=== PATIENT | female | born 1990 | race Caucasian/White ===

== ENCOUNTER 2021-02-26 07:45 | Emergency (ER) | payer MEDICAID, SELFPAY ==
--- NOTE | ~2021-02-26 | CT_ITS ---
EXAMINATION: CT ABDOMEN AND PELVIS WITHOUT CONTRAST CLINICAL INFORMATION: Right flank pain. COMPARISON: None TECHNIQUE: Multidetector volumetric imaging was performed from the superior aspect of the liver through the pubic symphysis. Sagittal and coronal reformatted images were obtained on the technologist's workstation. This CT examination was performed using dose optimization techniques as appropriate, variously including the following: *Automated exposure control *Adjustment of mA and/or kV according to patient size (this includes techniques or standardized protocols for targeted exams where dose is matched to indication/reason for exam; i.e. extremities or head) *Use of iterative reconstruction technique DLP: 819 mGy-cm FINDINGS: LUNG BASES: The lungs are well expanded and clear. Heart size is normal. LIVER, GALLBLADDER, AND BILIARY TREE: The liver is normal in size, shape, and attenuation. No focal hepatic lesion or biliary ductal dilatation is present. The gallbladder has been surgically removed. PANCREAS: Unremarkable. SPLEEN: Unremarkable. ADRENAL GLANDS: Unremarkable. KIDNEYS AND URETERS: The kidneys are normal in size, shape, and attenuation. There is a nonobstructive 3 mm radiopaque calculus in the lower pole calyx of the right kidney, 4 mm radiopaque calculus in the lower pole of the right kidney without caliectasis. There is mild right hydroureteronephrosis secondary to a 3 mm radiopaque calculus in the right distal ureter on axial image 76/2. BLADDER: Unremarkable. GASTROINTESTINAL TRACT: There is scattered stool and gas seen throughout the colon without any distention. The small bowel loops are normal caliber. The appendix is normal caliber. The stomach is nondistended. No free fluid or free air is seen. ABDOMINAL WALL: A small umbilical hernia containing fat is noted. LYMPH NODES: No abnormal-sized mediastinal or hilar lymph nodes are seen. 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 The aorta appears unremarkable. PELVIC VISCERA: The uterus is anteverted and appears unremarkable. No free fluid or free air is seen. OSSEOUS STRUCTURES: No lytic or sclerotic process seen. CT/CT abdomen pelvis wo con IMPRESSION: Bilateral lower pole nonobstructing radiopaque renal calculi. There is a 3 mm obstructive right distal ureteral stone with mild hydroureteronephrosis.
[2021-02-26 07:49] VITALS: BP 115/76; BP 148/76; PULSE 67; PULSE 84; RESP 18; TEMP 36.7; O2SAT 100; O2SAT 98; BMI 43.0
--- NOTE | 2021-02-26 07:51 | ED.ABDPAIN ---
HPI - Abdominal Pain General Chief Complaint: General Medical Stated Complaint: flank pain Time Seen by Provider: 02/26/21 07:49 History of Present Illness HPI narrative: A 30-year-old female presents today with having abdominal pain in the right flank area. Pain is sharp. Nonradiating. Associated with mild nausea. No vomiting. Similar to previous bouts of kidney stone. Patient is currently having her menstruation. Timing and duration is normal. No cough no congestion or respiratory symptoms. No diaphoresis. Patient is from home. Related Data Previous Rx's Medication Instructions Recorded ibuprofen 400 mg PO Q6H PRN #20 tab 02/26/21 ondansetron 4 mg PO TID PRN 5 Days #10 tab 02/26/21 oxycodone 5 mg PO Q8H PRN #7 tab 02/26/21 tamsulosin [Flomax] 0.4 mg PO DAILY #7 cap 02/26/21 Allergies Allergy/AdvReac Type Severity Reaction Status Date / Time No Known Allergies Allergy Unverified 04/23/20 16:07 [No Known Allergies*] Review of Systems Review of Systems Positive nausea no vomiting positive right flank pain all systems reviewed otherwise negative Physical Exam Vital Signs: Vital Signs: Last Vital Signs Temp 98.5 F 02/26/21 12:32 Pulse 64 02/26/21 12:32 Resp 19 02/26/21 12:32 BP 117/69 02/26/21 12:32 Pulse Ox 98 02/26/21 12:32 Body Mass Index 43.0 Appearance: Alert. Oriented X3. No acute distress. Eyes: Pupils equal, round and reactive to light. ENT: Pharynx normal. Neck: Normal inspection. Neck supple. No lymph nodes noted. No crepitus CVS: Normal heart rate and rhythm. Pulses normal. Normal S1 and S2 Respiratory: No respiratory distress. Breath sounds normal. No Wheezing. No rales Abdomen: Soft and nontender. No rigidity. No distention. good BS x4 Skin: Skin warm and dry. Normal skin color. Normal skin turgor. Extremities: No lower extremity edema. Neurovascular intact to all extremities. No Lacerations. No Rash Neuro: Oriented X 3. No motor deficit. No sensory deficit. Moving all extermities. No slurred speech MDM - Abdominal Pain MDM Narrative Medical decision making narrative: Patient's CT scan of the abdomen pelvis positive for having a kidney stone in the right distal ureter. Patient's pain is control urine is not infected creatinine is normal. Will discharge patient home close follow-up on an outpatient basis. Currently in stable condition. Lab Data Result diagrams: 02/26/21 08:04 02/26/21 08:04 Labs: Lab Results 02/26/21 02/26/21 02/26/21 Range/Units 08:04 08:04 09:15 WBC 9.0 (4.8-10.8) X10*3/uL RBC 4.73 (4.20-5.50) X10*6/uL Hgb 13.0 (12.0-16.0) g/dl Hct 39.6 (37-47) % MCV 83.7 (80-98) fL MCH 27.5 (27.0-33.0) pg MCHC 32.8 (31.0-35.0) g/dl RDW 14.8 (11.0-16.0) % Plt Count 265 (160-400) X10*3/uL MPV 8.9 L (9.4-12.3) fL Immature Gran % (Auto) 0.3 (0.0-0.4) % Neut % (Auto) 69.3 (45-73) % Lymph % (Auto) 24.3 (20-40) % Hill % (Auto) 5.6 (2-11) % Eos % (Auto) 0.2 (0-4) % Baso % (Auto) 0.3 (0-2) % Lymph # (Auto) 2.2 (1.2-4.9) X10*3/uL Hill # (Auto) 0.5 (0.1-1.2) X10*3/uL Eos # (Auto) 0.0 (0.0-0.4) X10*3/uL Baso # (Auto) 0.0 (0.0-0.2) X10*3/uL Abs Immat Gran (auto) 0.03 (0.00-0.03) X10*3/uL Absolute Neuts (auto) 6.2 (2.0-8.3) X10*3/uL Absolute Nucleated RBC 0.000 (0.0-0.012) X10*3/uL Nucleated RBC % (auto) 0.0 (0.0-0.2) /100WBC Sodium 139 (135-145) mmol/L Potassium 3.5 (3.3-5.1) mmol/L Chloride 106 (96-108) mmol/L Carbon Dioxide 25 (22-29) mmol/L Anion Gap 12 (12-20) BUN 11 (9-16) mg/dL Creatinine 0.83 (0.5-1.4) mg/dL Estim Creat Clear Calc 115.9 Estimated GFR > 60 Random Glucose 111 (60-115) mg/dL Calcium 8.9 (8.4-10.2) mg/dL Total Bilirubin 0.2 (0.0-1.0) mg/dL Direct Bilirubin < 0.2 (0.0-0.5) mg/dL AST 16 (5-31) U/L ALT 20 (0-31) U/L Alkaline Phosphatase 89 (39-117) U/L Total Protein 6.8 (6.5-8.0) g/dL Albumin 3.8 (3.5-5.0) g/dL Lipase 16 (8-78) U/L Urine Color RED Urine Appearance TURBID Urine pH 7.0 (5.0-8.0) Ur Specific [place] 1.020 (1.005-1.025) Urine Protein 2+ H (NEG-TRACE) MG/DL Urine Glucose (UA) NEG (NEG) MG/DL Urine Ketones NEG (NEG) MG/DL Urine Blood 3+ H (NEG) Urine Nitrite NEG (NEG) Ur Leukocyte Esterase TRACE H (NEG) Urine RBC TNTC H (0) /HPF Urine WBC 1-4 (0-4) /HPF Ur Squamous Epith Cells 1+ /LPF Urine Bacteria NONE /LPF Urine Test (NEGATIVE) 02/26/21 Range/Units 09:15 WBC (4.8-10.8) X10*3/uL RBC (4.20-5.50) X10*6/uL Hgb (12.0-16.0) g/dl Hct (37-47) % MCV (80-98) fL MCH (27.0-33.0) pg MCHC (31.0-35.0) g/dl RDW (11.0-16.0) % Plt Count (160-400) X10*3/uL MPV (9.4-12.3) fL Immature Gran % (Auto) (0.0-0.4) % Neut % (Auto) (45-73) % Lymph % (Auto) (20-40) % Hill % (Auto) (2-11) % Eos % (Auto) (0-4) % Baso % (Auto) (0-2) % Lymph # (Auto) (1.2-4.9) X10*3/uL Hill # (Auto) (0.1-1.2) X10*3/uL Eos # (Auto) (0.0-0.4) X10*3/uL Baso # (Auto) (0.0-0.2) X10*3/uL Abs Immat Gran (auto) (0.00-0.03) X10*3/uL Absolute Neuts (auto) (2.0-8.3) X10*3/uL Absolute Nucleated RBC (0.0-0.012) X10*3/uL Nucleated RBC % (auto) (0.0-0.2) /100WBC Sodium (135-145) mmol/L Potassium (3.3-5.1) mmol/L Chloride (96-108) mmol/L Carbon Dioxide (22-29) mmol/L Anion Gap (12-20) BUN (9-16) mg/dL Creatinine (0.5-1.4) mg/dL Estim Creat Clear Calc Estimated GFR Random Glucose (60-115) mg/dL Calcium (8.4-10.2) mg/dL Total Bilirubin (0.0-1.0) mg/dL Direct Bilirubin (0.0-0.5) mg/dL AST (5-31) U/L ALT (0-31) U/L Alkaline Phosphatase (39-117) U/L Total Protein (6.5-8.0) g/dL Albumin (3.5-5.0) g/dL Lipase (8-78) U/L Urine Color Urine Appearance Urine pH (5.0-8.0) Ur Specific [place] (1.005-1.025) Urine Protein (NEG-TRACE) MG/DL Urine Glucose (UA) (NEG) MG/DL Urine Ketones (NEG) MG/DL Urine Blood (NEG) Urine Nitrite (NEG) Ur Leukocyte Esterase (NEG) Urine RBC (0) /HPF Urine WBC (0-4) /HPF Ur Squamous Epith Cells /LPF Urine Bacteria /LPF Urine Test NEGATIVE (NEGATIVE) Discharge Plan Discharge Clinical Impression: Renal colic Patient Disposition: Home, Self-Care Instructions: Renal Colic (ED) Prescriptions: New tamsulosin [Flomax] 0.4 mg capsule 0.4 mg PO DAILY Qty: 7 RF: 0 ibuprofen 400 mg tablet 400 mg PO Q6H PRN (Reason: pain) Qty: 20 RF: 0 ondansetron 4 mg tablet,disintegrating 4 mg PO TID PRN (Reason: nausea and vomiting) 5 Days Qty: 10 RF: 0 oxycodone 5 mg tablet 5 mg PO Q8H PRN (Reason: pain) Qty: 7 RF: 0 Referrals: Raymon Velazquez MD [Physician] - 2 days PMF Past Medical History Attestation statement: The following information was validated with the patient. Medical History (Updated 02/26/21 @ 13:59 by Ida Nolan MD) Kidney stones Social History Social History Alcohol intake: never Patient Tobacco Use Status: Never used Tobacco Use of substances other than those prescribed or required for medical reasons: No Advance Directives: Yes Advance Directives Information Provided: Yes Advance Directives on File: No Patient : No
[2021-02-26 08:08] LABS: Basophils Percent Auto 0.3 % (0-2); Eosinophils Percent Auto 0.2 % (0-4); Hematocrit 39.6 % (37-47); Imm Gran Abs Auto 0.03 X10*3/uL (0.00-0.03); Imm Gran Pct Auto 0.3 % (0.0-0.4); Lymphocytes Absolute Auto 2.2 X10*3/uL (1.2-4.9); Lymphocytes Percent Auto 24.3 % (20-40); MANUAL DIFF FLAG NO; Mean Corpuscular HGB Conc 32.8 g/dl (31.0-35.0); Mean Corpuscular Hemoglobin 27.5 pg (27.0-33.0); Mean Corpuscular Volume 83.7 fL (80-98); Mean Platelet Volume 8.9 fL (9.4-12.3); Monocytes Absolute Auto 0.5 X10*3/uL (0.1-1.2); Monocytes Percent Auto 5.6 % (2-11); Neutrophils Absolute Auto 6.2 X10*3/uL (2.0-8.3); Neutrophils Percent Auto 69.3 % (45-73); Platelet Count 265 X10*3/uL (160-400); Red Blood Count 4.73 X10*6/uL (4.20-5.50); Red Cell Distribution Width 14.8 % (11.0-16.0)
[2021-02-26] MEDS: Ketorolac Tromethamine 15 MG/ML VIAL IVPUSH (08:10)
[2021-02-26] MEDS: ondansetron HCL 4 MG/2 ML VIAL IVPUSH (08:10)
[2021-02-26] MEDS: 0.9 % Sodium Chloride 1,000 ML 999 ML IV (08:11)
[2021-02-26] MEDS: HYDROmorphone HCl 0.5 MG/0.5 ML SYRINGE IVPUSH (08:11)
--- NOTE | 2021-02-26 08:16 | PC.NURSE ---
iv inserted, labs drawn, pt medicated per order, pt aware we need a urine before she can have a ct scan, will continue to monitor.
[2021-02-26 08:30] LABS: Alanine Aminotransferase 20 U/L (0-31); Albumin Level 3.8 g/dL (3.5-5.0); Alkaline Phosphatase 89 U/L (39-117); Anion Gap 12 (12-20); Aspartate Amino Transferase 16 U/L (5-31); Bilirubin Direct < 0.2 mg/dL (0.0-0.5); Bilirubin Total 0.2 mg/dL (0.0-1.0); Blood Urea Nitrogen 11 mg/dL (9-16); Calcium 8.9 mg/dL (8.4-10.2); Carbon Dioxide 25 mmol/L (22-29); Chloride 106 mmol/L (96-108); Creatinine Clr Calc Pharmacy 115.9; Estimated Glomerular Filt Rate > 60; Glucose Random 111 mg/dL (60-115); Lipase 16 U/L (8-78); Potassium 3.5 mmol/L (3.3-5.1); Sodium 139 mmol/L (135-145); Total Protein 6.8 g/dL (6.5-8.0)
[2021-02-26 09:24] LABS: UPreg QC Valid YES; Urine Pregnancy NEGATIVE (NEGATIVE)
[2021-02-26 09:28] LABS: Glucose Urine UA NEG (NEG); Leukocyte Esterase Urine TRACE (NEG); Nitrite Urine NEG (NEG); UACC Culture Trigger YES; Urine Blood 3+ (NEG); Urine Ketones NEG (NEG); Urine Protein 2+ MG/DL (NEG-TRACE)
[2021-02-26 09:30] LABS: Appearance Urine TURBID; Color Urine RED
[2021-02-26 09:33] LABS: RBC Urine TNTC /HPF (0); Squamous Epithelial Cell Urine 1+ /LPF
[2021-02-26 10:18] VITALS: BP 146/72; PULSE 82; RESP 18; TEMP 36.8; O2SAT 99
--- NOTE | 2021-02-26 10:19 | PC.NURSE ---
patient a&ox3, vss, pt states her pain decreased to 2/10, will continue to monitor.
[2021-02-26 12:32] VITALS: BP 117/69; PULSE 64; RESP 19; TEMP 36.9; O2SAT 98
== END 2021-02-26 14:11 | disposition home or self-care (01) ==
PROVIDERS: Emergency Provider Emergency Medicine Emergency Medical Services
DX: N23 Unspecified renal colic (principal); Z79.899 Other long term (current) drug therapy
CPT/HCPCS: 36415; 74176; 80048; 80076; 81001; 81003; 81025; 83690; 85025; 87086; 96365; 96375; 99284; J1170; J1885; J2405

== ENCOUNTER 2024-09-11 12:31 | Outpatient (REF) | payer MEDICAID, SELFPAY ==
[2024-09-11 13:08] LABS: MANUAL DIFF FLAG NO
[2024-09-11 13:14] LABS: Basophils Percent Auto 0.4 % (0-2); Hematocrit 38.5 % (37.0-47.0); Hemoglobin 12.8 g/dl (12.0-16.0); Imm Gran Abs Auto 0.03 X10*3/uL (0.00-0.03); Imm Gran Pct Auto 0.3 % (0.0-0.4); Lymphocytes Absolute Auto 1.9 X10*3/uL (1.2-4.9); Lymphocytes Percent Auto 16.8 % (20-40); Mean Corpuscular HGB Conc 33.2 g/dl (31.0-35.0); Mean Corpuscular Hemoglobin 27.5 pg (27.0-33.0); Mean Corpuscular Volume 82.6 fL (80.0-98.0); Mean Platelet Volume 9.8 fL (9.4-12.3); Monocytes Absolute Auto 0.4 X10*3/uL (0.1-1.2); Neutrophils Absolute Auto 8.7 x10*3/uL (2.0-8.3); Neutrophils Percent Auto 78.5 % (45-73); Platelet Count 268 X10*3/uL (160-400); Red Blood Count 4.66 X10*6/uL (4.20-5.50); Red Cell Distribution Width 14.9 % (11.0-16.0); White Blood Count 11.1 X10*3/uL (4.8-10.8)
[2024-09-11 13:31] LABS: Estimated Average Glucose 103 mg/dL; Hemoglobin A1C 114.7453 umol/L; Hemoglobin A1c % 5.2 % (<6.0); Total Hemoglobin (HGBA1C) 3439.3901 umol/L
[2024-09-11 13:56] LABS: Alanine Aminotransferase 18 U/L (0-31); Albumin Level 3.9 g/dL (3.5-5.0); Alkaline Phosphatase 70 U/L (39-117); Anion Gap 10 (12-20); Aspartate Amino Transferase 15 U/L (5-31); Bilirubin Total 0.4 mg/dL (0.0-1.0); Blood Urea Nitrogen 5 mg/dL (9-16); Calcium 8.4 mg/dL (8.4-10.2); Carbon Dioxide 24 mmol/L (22-29); Chloride 104 mmol/L (96-108); Estimated Glomerular Filt Rate > 60; Glucose Random 88 mg/dL (60-115); Potassium 3.3 mmol/L (3.3-5.1); Sodium 135 mmol/L (135-145); Total Protein 7.4 g/dL (6.5-8.0)
--- OUTSIDE RECORDS SUMMARY | 2024-09-11 13:56 | XMS_ITS | Encounter Summary ---
Author Organization [employer] Address [address] [facility] [address] [place] [address] Care Team Providers Care Osteopathy Doctor Name Role Phone Minnie Calderon NP Primary Care Provider [phone] Reason for Visit * Reason Onset Date Comments FYI 09/05/2024 Encounter Details Date Type Department Care Team ([facility] st Contact Info) Description 09/05/2024 Telephone [facility] [address] [place] [address] Minnie Calderon NP [address] [place] [address] FYI Social History Tobacco Use Types Packs/Day Years Used Date Smoking Tobacco: Never Passive Smoke Exposure: Never Smokeless Tobacco: Never Alcohol Use Standard Drinks/Week Comments Never 0 (1 standard drink = 0.6 oz pur e alcohol) Comments Unknown Sex and Gender Information Value Date Recorded Sex Assigned at Female 06/06/2022 10:16 AM EDT Legal Sex Female 10:16 AM EDT Gender Identity Female 06/06/2022 10:16 AM EDT Sexual Orientation Choose not to disclose 2021 10:16 AM EDT documented as of this encounter Miscellaneous Notes * Telephone Encounter - Melly Sanches RN - 09/05/2024 9:29 AM EST TC placed to pt at number provided by call center, . Pt reports LMP in July, but cannot recall date. Pt states I was expecting period in August, but when it didn't come, I suspectedI could be . Pt reports heavy/sore breasts and fatigue. Pt reports taking 4 tests that were all positive and states she intends to keep . Pt denies taking vitamins at this time. Pt is not currently being followed by an OBGYN and was unsure if she needed to be seen by PCP before being referred to OBGYN. Pt requesting next steps. Message forwarded to PCP to review and advise. * Telephone Encounter - Loly Pinto - 09/05/2024 8:10 AM EST Tc from pt stating did four home tests and it came back positive. Pt requested a call back from nurses. documented in this encounter Plan of Treatment Upcoming Encounters Date Type Department Care Team (Late st Contact Info) Description 10/23/2024 11:30 AM EDT Office Visit [facility] [address] [place] [address] Minnie Calderon NP [address] [place] [address] documented as of this encounter Visit Diagnoses Not on filedocumented in this encounter Care Teams Osteopathy Doctor Relationship Specialty Start Date End Date Minnie Calderon NP [address] [place] [phone] PCP - General Family Medicine 09/12/23 documented as of this encounter
--- OUTSIDE RECORDS SUMMARY | 2024-09-11 13:56 | XMS_ITS | Encounter Summary ---
Author Organization [email or web address] Address [address] [facility] [address] [place] [address] Care Team Providers Care Equipment Maint Tech Name Role Phone Minnie Calderon NP Primary Care Provider [phone] Reason for Referral * Consultation (Routine) - Pending Review Specialty Diagnoses / Procedures Referred By Mainor valdez Referred To Contact Obstetrics and Gynecology Diagnoses Less than 8 weeks gestation of Rosa M Romero FNP [address] [place] [address] Phone: tel: fax: Referral ID Status Reason Start Date Expiration Date Visits Requested Visits Authorized [id number] Pending Review Specialty Services Required 09/09/2024 09/09/2025 1 1 Reason for Visit * Reason Comments Hypertension Encounter Details Date Type Department Care Team ([facility] st Contact Info) Description 09/09/2024 2:30 PM EST Office Visit [facility] [address] [place] [address] Rosa M Romero FNP [address] [place] [address] Less than 8 weeks gestation of (Primary Dx); Primary hypertension Social History Tobacco Use Types Packs/Day Years Used Date Smoking Tobacco: Never Passive Smoke Exposure: Never Smokeless Tobacco: Never Tobacco Cessation:Counseling Given: Not Answered Alcohol Use Standard Drinks/Week Comments Never 0 (1 standard drink = 0.6 oz pur e alcohol) Housing Stability Answer Date Recorded What is your housing situation today? I have porfirio simpson 09/09/[address] you li ve. Do you have problems with any of the following? None of the above 09/09/2024 Food Insecurity Answer Date Recorded Within the past 12 months, y ou worried that your food would run out before you got money to buy more: Never True 09/09/2024 Within the past 12 months,th e food you bought just didn't last and you didn't have enough money to get more: Never True 10/2024 Transportation Answer Date Recorded In the past 12 months, has l ack of transportation kept you from medical appts, meetings, work or from getting things needed for daily living? No 09/09/2024 Utilities Answer Date Recorded In the past 12 months, has t he electric, gas, oil or water company threatened to shut off services in your home? No 09/09/2024 Internet Access Answer Date Recorded Internet Access Q1 Yes 09/09/2024 Internet Access Q2 Not on file 09/09/2024 Comments Yes Sex and Gender Information Value Date Recorded Sex Assigned at Female 06/06/2022 10:16 AM EDT Legal Sex Female 10:16 AM EDT Gender Identity Female 06/06/2022 10:16 AM EDT Sexual Orientation Choose not to disclose 2021 10:16 AM EDT documented as of this encounter Last Filed Vital Signs Vital Sign Reading Time Taken Comments Blood Pressure 144/101 09/09/2024 2:32 PM EST Pulse 73 09/09/2024 2:32 PM EST Temperature 36.1 ??C (97 ??F) 09/09/2024 2:32 PM EST Respiratory Rate 20 09/09/2024 2:32 PM EST Oxygen Saturation 98% 09/09/2024 2:32 PM EST Inhaled Oxygen Concentration - - Weight 98.9 kg (218 lb) 09/09/2024 2:32 PM EST Height 154 cm (5' 0.63 ) 09/09/2024 2:32 PM EST Body Mass Index 41.7 09/09/2024 2:32 PM EST documented in this encounter Plan of Treatment Upcoming Encounters Date Type Department Care Team (Late st Contact Info) Description 10/23/2024 11:30 AM EDT Office Visit [facility] [address] [place] [address] Minnie Calderon NP [address] [place], [place] [phone] Scheduled Orders Name Type Priority Associated Diagnoses Orde r Schedule Comprehensive Metabolic Panel Lab Routine Less than 8 weeks gestation of Expected: 09/09/2024 (Approximate), Expires: 09/09/2025 Scheduled Referrals Name Type Priority Associated Diagnoses Order Schedule Referral to Obstetrics / Gynecology Outpatient Referral Routine Less than 8 weeks gestation of Expected: 09/09/2024 (Approximate), Expires: 09/09/2025 documented as of this encounter Procedures Procedure Name Priority Date/Time Associated Diagnosis Comments CBC WITH AUTO DIFFERENTIAL Routine 09/11/2024 12:37 PM EST Less than 8 weeks gestation of HEMOGLOBIN A1C Routine 09/11/2024 12:37 PM EST Less than 8 weeks gestation of POCT , URINE Routine 09/09/2024 3:08 PM EST Less than 8 weeks gestation of documented in this encounter Results * Hemoglobin A1c (09/11/2024 12:37 PM EST) Hemoglobin A1c 5.2 <6.0 % [facility] Comment:Hemoglobin A1C Refer ence Range Adults: 4.8 - 6.0 % Non diabetic: < 6.0 % Goal: < 7.0 %Additional Action Suggested: > 8.0 %Note: Hemoglobin A1c results are invalid for patients with abnormal amounts of HbF. Blood transfusions may impact the HbA1c concentration in the patient sample. Estimated Average Glucose 103 mg/dL [facility] Comment:eAG = Estimated ave rage glucose which is %A1C expressed asaverage glucose, using the formula of the Q3V-GlxqaepCrelxjo Glucose study (ADAG), Diabetes Care, Vol.31,#8,Mar. 2007 Blood Venous blood specimen / Unknown 09/11/2024 12:37 PM EST 09/11/2024 1:04 PM EST [facility] GENERAL PASSENGER AGENT LAB BLOOD ORDERABLES Final Re sult [facility] [address] [place] [phone] * (ABNORMAL) CBC auto differential (09/11/2024 12:37 PM EST) White Blood Count 11.1(H) 4.8 - 10.8 X10*3/uL [facility] Red Blood Count 4.66 4.20 - 5.50 X10*6/uL [facility] Hemoglobin 12.8 12.0 - 16.0 g/dl [facility] Hematocrit 38.5 37.0 - 47.0 % [facility] Mean Corpuscular Volume 82.6 80.0 - 98.0 fL [facility] Mean Corpuscular Hemoglobin 27.5 27.0 - 33.0 pg [facility] Mean Corpuscular HGB Conc 33.2 31.0 - 35.0 g/dl [facility] Red Cell Distribution Width 14.9 11.0 - 16.0 % [facility] Platelet Count 268 160 - 400 X10*3/uL [facility] Mean Platelet Volume 9.8 9.4 - 12.3 fL [facility] Neutrophils Percent Auto 78.5(H) 45 - 73 % [facility] Imm Gran Pct Auto 0.3 0.0 - 0.4 % [facility] Lymphocytes Percent Auto 16.8(L) 20 - 40 % [facility] Monocytes Percent Auto 4.0 2 - 11 % [facility] Eosinophils Percent Auto 0.0 0 - 4 % [facility] Basophils Percent Auto 0.4 0 - 2 % [facility] NRBC Pct Auto 0.0 0.0 - 0.2 /100WBC [facility] Neutrophils Absolute Auto 8.7(H) 2.0 - 8.3 x10*3/uL [facility] Imm Gran Abs Auto 0.03 0.00 - 0.03 X10*3/uL [facility] Lymphocytes Absolute Auto 1.9 1.2 - 4.9 X10*3/uL [facility] Monocytes Absolute Auto 0.4 0.1 - 1.2 X10*3/uL [facility] Eosinophils Absolute Auto 0.0 0.0 - 0.4 X10*3/uL [facility] Basophils Absolute Auto 0.0 0.0 - 0.2 X10*3/uL [facility] NRBC Abs Auto 0.000 0.0 - 0.012 X10*3/uL [facility] Blood Venous blood specimen / Unknown 09/11/2024 12:37 PM EST 09/11/2024 1:04 PM EST [facility] LAB BLOOD ORDERABLES Final Re sult [facility] [address] [place] [phone] * (ABNORMAL) POCT Urine (09/09/2024 3:08 PM EST) Preg Test, Ur Positive( A) Negative, Indeterminate, None Detected, Invalid, Specimen unsatisfactory for evaluation, Weakly Positive Urine 09/09/2024 3:08 PM EST [facility] POINT OF CARE TEST ENTER/EDIT ORDERABLES Final Result documented in this encounter Visit Diagnoses Diagnosis Less than 8 weeks gestation of - Primary Primary hypertension Unspecified essential hypertension documented in this encounter Care Teams Equipment Maint Tech Relationship Specialty Start Date End Date Minnie Calderon NP [address] [place] [phone] PCP - General Family Medicine 09/12/23 documented as of this encounter
--- OUTSIDE RECORDS SUMMARY | 2024-09-11 13:56 | XMS_ITS | Encounter Summary ---
Author Organization [employer] Address [address] [facility] [address] [place] [address] Care Team Providers Care Administration Clerk Name Role Phone Minnie Calderon [facility] DIRECTOR Primary Care Provider [phone] Reason for Visit * Reason Onset Date Comments Nurse Triage 09/10/2024 Encounter Details Date Type Department Care Team ([facility] st Contact Info) Description 09/10/2024 Telephone [facility] [address] [place] [address] Minnie Calderon NP [address] [place] [address] Nurse Triage Social History Tobacco Use Types Packs/Day Years Used Date Smoking Tobacco: Never Passive Smoke Exposure: Never Smokeless Tobacco: Never Alcohol Use Standard Drinks/Week Comments Never 0 (1 standard drink = 0.6 oz pur e alcohol) Housing Stability Answer Date Recorded What is your housing situation today? I have porfiriojose simpson 09/09/[address] you [...] encounter Miscellaneous Notes * Telephone Encounter - Inge Guo RN - 09/10/2024 3:51 PM EST Called pt. She states that she is and not sure how far along she is. Today pt. Went to usethe bathroom and when she wiped there was a small amount of pinkish tinged discharge on toilet paper. No red blood and no drops, clots, or [place]rett tissue. Pt. Concerned because she had a miscarriage in the past. Pt does not know how far along she is but she knows she did not get her menses all of August 2024. No abdominal cramping and only Positive urine tests. Pt. Also did have intercourse earlier today which may have caused slight irritation. Pt. Will monitor discharge and will increase water intake for hydration. Appt. Made for 1115am tomorrow at [facility] to assess and get blood work ordered. Pt. Did callm [facility] today to [facility] so she does not have an appt. With them yet and was told they would call her in a few days. Protocol Used: - Vaginal Bleeding Less Than 20 Weeks EGA (Adult) Protocol-Based Disposition: Home Care- gave pt. Appt. For 1115am tomorrow 09/11/24 for reassurance and blood work Positive Triage Question: * SPOTTING after sexual intercourse (single or brief episode) * All higher-acuity triage questions were negative Care Advice Discussed: * Reassurance and Education - Slight Spotting After Sex or an Exam * Telephone Encounter - Sid Cooper - 09/10/2024 3:37 PM EST Symptom: Vaginal Bleeding During - Under 20 Weeks Outcome: Schedule an urgent appointment (within 4 hours) or talk to a nurse or provider soon Reason: Caller denied all higher acuity questions The caller accepted this outcome. documented in this encounter Plan of Treatment Upcoming Encounters Date Type Department Care Team (Late st Contact Info) Description 10/23/2024 11:30 AM EDT Office Visit [facility] [address] [place] [address] Minnie Calderon NP [address] [place] [address] documented as of this encounter Visit Diagnoses Not on filedocumented in this encounter Care Teams Administration Clerk Relationship Specialty Start Date End Date Minnie Calderon NP [address] [place] [phone] PCP - General Family Medicine 09/12/23 documented as of this encounter
--- OUTSIDE RECORDS SUMMARY | 2024-09-11 13:56 | XMS_ITS | Encounter Summary ---
Author Organization [employer] [facility] Address [address] [place] [address] Care Team Providers Care Oncology Social Worker Name Role Phone Minnie Calderon CESAR Primary Care Provider [phone] Encounter Details Date Type Department Care Team (Latest Contact Info) Description 09/09/2024 Travel Social History Tobacco Use Types Packs/Day Years [...] AM EDT documented as of this encounter Plan of Treatment Upcoming Encounters Date Type Department Care Team (Late st Contact Info) Description 10/23/2024 11:30 AM EDT Office Visit [facility] [address] [place] [address] Minnie Calderon NP [address] [place] [address] documented as of this encounter Visit Diagnoses Not on filedocumented in this encounter Care Teams Oncology Social Worker Relationship Specialty Start Date End Date Minnie Calderon NP [address] [place] [address] PCP - General Family Medicine 09/12/23 documented as of this encounter
--- OUTSIDE RECORDS SUMMARY | 2024-09-11 13:56 | XMS_ITS | Encounter Summary ---
Author Organization [employer] Address [address] [facility] [facility] [address] [place] [address] Care Team Providers Care Real Estate Closing Coordinator Name Role Phone Minnie Calderon SILK WINDING MACHINE OPERATOR Primary Care Provider [phone] Reason for Visit * Reason Onset Date Comments Nurse Triage 09/09/2024 Encounter Details Date Type Department Care Team ([facility] st Contact Info) Description 09/09/2024 Telephone [facility] [address] [place] [address] Minnie Calderon NP [address] [place] [address] Nurse Triage Social History Tobacco Use Types [...] encounter Miscellaneous Notes * Telephone Encounter - Candi Calderon LPN - 09/09/2024 11:20 AM EST Triage call returned to patient with + home pregnancies tests last week x 4. Patient with children and no previous issues with HTN in . Patient reports that she called last week and was awaiting a message. [place] [facility] [place] was told that she would be considered High Risk but is unsure of reason. Patient felt some headache and took BP was 137/99. No other reported symptoms. Has call out to Laura Farias to initiate a COURT USHER team. Pending return call. Disposition reviewed and patient in agreement with plan.ASK/F.[place] SILK WINDING MACHINE OPERATOR@ 230pm today for evaluation of BP. Not on any medications at time of call. Protocol Used: Blood Pressure - High (Adult) Protocol-Based Disposition: See in Office or Video Visit within 3 Days Positive Triage Question: * Systolic BP >= 130 OR Diastolic >= 80, and * All higher-acuity triage questions were negative Care Advice Discussed: * Reasons To Call Back - You become worse * Telephone Encounter - Oc De Jesus - 09/09/2024 10:45 AM EST Symptom: High Blood Pressure - Caller Reports Outcome: Talk to a nurse or provider within 15 minutes Reason: Severe headache The caller accepted this outcome. Contact pt at [phone] documented in this encounter Plan of Treatment Upcoming Encounters Date Type Department Care Team ([facility] st Contact Info) Description 10/23/2024 11:30 AM EDT Office Visit [facility] [address] [place] [address] Minnie Calderon NP [address] [place] [address] documented as of this encounter Visit Diagnoses Not on filedocumented in this encounter Care Teams Real Estate Closing Coordinator Relationship Specialty Start Date End Date Minnie Calderon NP [address] [place] [address] PCP - General Family Medicine 09/12/23 documented as of this encounter
--- OUTSIDE RECORDS SUMMARY | 2024-09-11 13:56 | XMS_ITS | Encounter Summary ---
Author Organization [employer] [facility] Address [address] [facility] [place] [address] Care Team Providers Care Supervisor Cytogenetic Laboratory Name Role Phone Minnie Calderon NP Primary Care Provider [phone] Reason for Referral * Imaging (STAT) - Authorized Specialty Diagnoses / Procedures Referred By Mainor valdez Referred To Contact Radiology Diagnoses Spotting in Procedures US OB Transvaginal Pamela Baez NP [address] [place] [address] Phone: tel: fax: [address] Phone: tel: fax: Referral ID Status Reason Start Date Expiration Date V isits Requested Visits Authorized [id number] Authorized 09/11/2024 09/11/2025 1 1 Encounter Details Date Type Department Care Team (Late st Contact Info) Description 09/11/2024 11:20 AM EST Office Visit [facility] [address] [place], [place] [phone] Spotting in (Primary Dx) Social History Tobacco Use Types Packs/Day Years [...] the past 12 months, has t he [employer], gas, oil or water [employer] threatened to shut off services in your [...] Sign Reading Time Taken Comments Blood Pressure 127/79 09/11/2024 11:22 AM EST Pulse 73 09/11/2024 11:22 AM EST Temperature 36.4 ??C (97.6 ??F) 09/11/2024 11:[address] Respiratory Rate 17 09/11/2024 11:22 AM EST Oxygen Saturation 99% 09/11/2024 11:22 AM EST Inhaled Oxygen Concentration - - Weight 97.2 kg (214 lb 6 oz) 09/11/2024 11:22 AM EST Height 157.5 cm (5' 2 ) 09/11/2024 11:22 AM EST Body Mass Index 39.21 09/11/2024 11:22 AM EST documented in this encounter Plan of Treatment Upcoming Encounters Date Type Department Care Team (Late st Contact Info) Description 10/23/2024 11:30 AM EDT Office Visit [facility] [address] [place] [address] Minnie Calderon NP [address] [place] [address] Scheduled Orders Name Type Priority Associated Diagnoses Orde r Schedule US OB Transvaginal Imaging STAT Spotting in Expected: 09/11/2024, Expires: 09/11/2025 Chlamydia/N. Gonorrhoeae RNA, TMA, Vagina Microbiology Routine Spotting in Ordered: 09/11/2024 Bacterial Vaginosis Microbiology Routine Spotting in Expected: 09/11/2024 (Approximate), Expires: 09/11/2025 hCG, Total, Quantitative Lab Routine Spotting in Expected: 09/11/2024 (Approximate), Expires: 09/11/2025 documented as of this encounter Visit Diagnoses Diagnosis Spotting in - Primary Spotting complicating , unspecified as to episode of care or not applicable documented in this encounter Care Teams Supervisor Cytogenetic Laboratory Relationship Specialty Start Date End Date Minnie Calderon NP [address] [place] [phone] PCP - General Family Medicine 09/12/23 documented as of this encounter
--- OUTSIDE RECORDS SUMMARY | 2024-09-11 13:56 | XMS_ITS | Clinical Summary ---
Author Organization [facility] [facility] Address [address] [facility] [address] [place] [address] Care Team Providers Care Fleet Manager/Dispatch Name Role Phone Minnie Calderon NP Primary Care Provider [phone] Allergies No known active allergies Medications ibuprofen 600 MG tablet Take 1 tablet (600 mg) by mouth every 6 (six) hours if needed for mild pain for up to 20 doses. 20 tablet 4 Active acetaminophen (Tylenol) 500 MG tablet Take 1 tablet (500 mg) by mouth every 6 (six) hours if needed for mild pain for up to 20 doses. 20 tablet 4 Active labetalol (Normodyne) 100 MG tabletIndication s:Primary hypertension Take 1 tablet (100 mg) by mouth 2 times daily. 60 tablet 11 5 026 Active multivitamin () 27-0.8 MG tabletIndication s:Less than 8 weeks gestation of Take 1 tablet by mouth Once per day. 30 tablet 5 Active metoprolol succinate XL (Toprol-XL) 25 MG 24 hr tablet Take 1 tablet by mouth at bed time. 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 11/07/2023 Periodontal disease 11/07/2023 Comments Yes Encounters Date Type Department Care Team Description 09/11/2024 11:20 AM EST Office Visit [facility] [address] [place] [address] Spotting in (Primary Dx) 09/10/2024 Telephone [facility] [address] [place] [address] Minnie Calderon NP Nurse Triage 09/09/2024 2:30 PM EST Office Visit [facility] [address] [place] [address] Heather, Rosa M, ROSS FURNACE OPERATOR Less than 8 weeks gestation of (Primary Dx); Primary hypertension 09/09/2024 Travel 09/09/2024 Telephone [facility] [address] [place] [address] Minnie Calderon NP Nurse Triage 09/05/2024 Telephone [facility] [address] [place] [address] Minnie Calderon NP FYI from Last 3 Months Social History Tobacco Use Types Packs/Day Years [...] t he electric, gas, oil or water [employer] threatened to shut off services in your [...] not to disclose 2021 10:16 AM EDT Last Filed Vital Signs Vital Sign Reading [...] Mass Index 39.21 09/11/2024 11:22 AM EST Plan of Treatment Upcoming Encounters Date Type Department Care Team (Late st Contact Info) Description 10/23/2024 11:30 AM EDT Office Visit [facility] [address] [place], [place] [phone] Minnie Calderon, CESAR [address] [place] [address] Health Maintenance Due Date Last Done Comments Dental Oral Exam 1992 Dental Prophylaxis 1992 Dental X-Ray: Bitewings 1992 Depression Screening 1992 HIV Screening 1992 Lipid Panel 1992 Alcohol/Substance Use Screening 2004 Family Planning (PISQ) 2007 Hepatitis C Screening 2010 Hepatitis B Vaccines (1 of 3 - 19+ 3-dose series) 2011 Pap Smear 2013 Cervical Cancer Screening 2022 HPV/Cotest 2022 COVID-19 Vaccine (2 - 2023-2 5 season) 2024 11/14/2020 Influenza Vaccine (#1) 2024 , 05/25/2018, 05/09/2017 SDOH Screening 09/09/2025 09/09/2024 Tobacco Screening 09/11/2025 09/11/2024 Dental X-Ray: Full Mouth 11/07/2026 11/07/2023 DTaP/Tdap/Td Vaccines (2 - T d or Tdap) 02/16/2028 02/15/2018 Zoster Vaccines (1 of 2) 2042 RSV Patients and Patients Aged 60 years or older (1 - 1-dose 75+ series) 2067 HIB Vaccines Aged Out No longer eligi ble based on patient's age to complete this topic HPV Vaccines Aged Out No longer eligi ble based on patient's age to complete this topic Hepatitis A Vaccines Aged Out No long er eligible based on patient's age to complete this topic IPV Vaccines Aged Out No longer eligi ble based on patient's age to complete this topic Meningococcal Vaccine Aged Out No darwin mery eligible based on patient's age to complete this topic Pneumococcal Vaccine: Pediatrics (0 to 5 Years) and At-Risk Patients (6 to 49) Years) Aged Out No longer eligible b ased on patient's age to complete this topic RSV under 20 months Aged Out No longe r eligible based on patient's age to complete this topic Rotavirus Vaccines Aged Out No longer eligible based on patient's age to complete this topic Procedures Procedure Name Priority Date/Time Associated Diagnosis Comments HEMOGLOBIN A1C Routine 09/11/2024 12:37 PM EST Less than 8 weeks gestation of CBC WITH AUTO DIFFERENTIAL Routine 09/11/2024 12:37 PM EST Less than 8 weeks gestation of POCT , URINE Routine 09/09/2024 3:08 PM EST Less than 8 weeks gestation of PANORAMIC RADIOGRAPHIC IMAGE Routine 11/07/2023 2:00 PM EDT from Last 3 Months or Most Recently Relevant to Health Maintenance Results * (ABNORMAL) CBC auto differential (09/11/2024 12:37 PM EST) White Blood Count 11.1(H) 4.8 - 10.8 X10*3/uL [facility] Red Blood Count 4.66 4.20 - 5.50 X10*6/uL [facility] Hemoglobin 12.8 12.0 - 16.0 g/dl [facility] Hematocrit 38.5 37.0 - 47.0 % [facility] Mean Corpuscular Volume 82.6 80.0 - 98.0 fL [facility] Mean Corpuscular Hemoglobin 27.5 27.0 - 33.0 pg [facility] Mean Corpuscular HGB Conc 33.2 31.0 - 35.0 g/dl [facility] Red Cell Distribution Width 14.9 11.0 - 16.0 % [facility] Platelet Count 268 160 - 400 X10*3/uL [facility] Mean Platelet Volume 9.8 9.4 - 12.3 fL [facility] Neutrophils Percent Auto 78.5(H) 45 - 73 % [facility] Imm Gran Pct Auto 0.3 0.0 - 0.4 % [facility] Lymphocytes Percent Auto 16.8(L) 20 - 40 % [facility] Monocytes Percent Auto 4.0 2 - 11 % [facility] Eosinophils Percent Auto 0.0 0 - 4 % [facility] Basophils Percent Auto 0.4 0 - 2 % [facility] NRBC Pct Auto 0.0 0.0 - 0.2 /100WBC [facility] Neutrophils Absolute Auto 8.7(H) 2.0 - 8.3 x10*3/uL [facility] Imm Gran Abs Auto 0.03 0.00 - 0.03 X10*3/uL [facility] Lymphocytes Absolute Auto 1.9 1.2 - 4.9 X10*3/uL [facility] Monocytes Absolute Auto 0.4 0.1 - 1.2 X10*3/uL [facility] Eosinophils Absolute Auto 0.0 0.0 - 0.4 X10*3/uL [facility] Basophils Absolute Auto 0.0 0.0 - 0.2 X10*3/uL [facility] NRBC Abs Auto 0.000 0.0 - 0.012 X10*3/uL [facility] Blood Venous blood specimen / Unknown 09/11/2024 12:37 PM EST 09/11/2024 1:04 PM EST [facility] ROSS FURNACE OPERATOR LAB BLOOD ORDERABLES Final Re sult Performing Organization Address [facility] Co de Phone Number [facility] [address] [place] [address] [phone] * Hemoglobin A1c (09/11/2024 12:37 PM EST) Hemoglobin A1c 5.2 <6.0 % [facility] Comment:Hemoglobin A1C Refer ence Range Adults: 4.8 - 6.0 % Non diabetic: < 6.0 % Goal: < 7.0 %Additional Action Suggested: > 8.0 %Note: Hemoglobin A1c results are invalid for patients with abnormal amounts of HbF. Blood transfusions may impact the HbA1c concentration in the patient sample. Estimated Average Glucose 103 mg/dL [facility] Comment:eAG = Estimated ave rage glucose which is %A1C expressed asaverage glucose, using the formula of the Y9H-YlweaccVghozsm Glucose study (ADAG), Diabetes Care, Vol.31,#8,Mar. 2007 Blood Venous blood specimen / Unknown 09/11/2024 12:37 PM EST 09/11/2024 1:04 PM EST [facility] LAB BLOOD ORDERABLES Final Re [facility] Performing Organization Address [facility] de Phone Number [facility] [address] [place] [phone] * (ABNORMAL) POCT Urine (09/09/2024 3:08 PM EST) Preg Test, Ur Positive( A) Negative, Indeterminate, None Detected, Invalid, Specimen unsatisfactory for evaluation, Weakly Positive Urine 09/09/2024 3:08 PM EST [facility] POINT OF CARE TEST ENTER/EDIT ORDERABLES Final Result from Last 3 Months Insurance [facility] Care Teams Fleet Manager/Dispatch Relationship Specialty Start Date End Date Minnie Calderon NP [address] [place] [address] PCP - General Family Medicine 09/12/23
[2024-09-11 14:10] LABS: HCG Quantitative 34796 mIU/mL
[2024-09-12 04:52] LABS: CT PCR NOT DETECTED (Not Detect.); NG PCR NOT DETECTED (Not Detect.)
[2024-09-12 12:47] LABS: Bacterial Vaginosis PCR POSITIVE (Negative); Candida Group PCR NOT DETECTED (Not Detect); Candida glab krusei PCR NOT DETECTED (Not Detect); Trichomonas vaginalis PCR NOT DETECTED (Not Detect)
== END 2024-09-11 12:32 | disposition home or self-care (01) ==
LOC: HO.HHCL 12:31
PROVIDERS: Registered Nurse; Visit Provider Nurse Practitioner
DX: O26.859 Spotting complicating pregnancy, unspecified trimester (principal); Z3A.01 Less than 8 weeks gestation of pregnancy
CPT/HCPCS: 36415; 80053; 81515; 83036; 84702; 85025; 87491; 87591

== ENCOUNTER 2024-09-12 08:03 | Outpatient (REF) | payer MEDICAID, SELFPAY ==
--- NOTE | ~2024-09-12 | US_ITS ---
EXAMINATION: US OBSTETRICAL ULTRASOUND CLINICAL INFORMATION: Early . Spotting. COMPARISON: None relevant. Prior pelvic obstetrical ultrasounds, most recently 02/25/2017. LMP: Unknown.. Beta-hCG quantitative = [id number] TECHNIQUE: Ultrasound of the maternal pelvis is performed using transabdominal transducer. M-mode Doppler is also performed. FINDINGS: There is a single intrauterine gestational sac with visible yolk sac, embryo/fetus, and cardiac activity. There is a small subchorionic hemorrhage measuring 1.0 x 0.7 x 1.0 cm, this encompasses approximately 20% of the circumference of the gestational sac. HR: 124 beats per minute. CRL (crown rump length): 0.88 cm (7 weeks and 0 days, +/- 4 days). LELO (estimated date of delivery): 05/01/2025, +/- 4 days. MATERNAL ADNEXA: The right maternal ovary measures 2.0 x 1.6 x 1.9 cm. Normal sonographic appearance. The left maternal ovary measures 2.5 x 1.8 x 2.4 cm. Normal sonographic appearance. There is no significant maternal adnexal mass. No maternal pelvic ascites. US/US OB <= 14 weeks fetus IMPRESSION: 1. Single live intrauterine gestation with ultrasound gestational age of 7 weeks and 0 days, +/- 4 days. 2. There is a small subchorionic hemorrhage of the inferior sac, encompassing approximately 20% circumference. 3. Estimated date of delivery is 05/01/2025, +/- 4 days. 4. No maternal adnexal mass or pelvic ascites. Electronically signed by: Solitario Butts MD 09/12/2024 08:58 AM [facility]
--- OUTSIDE RECORDS SUMMARY | 2024-09-12 08:06 | XMS_ITS | Encounter Summary ---
Author Organization [facility] Address [address] [facility] [address] [address] [place] [address] Care Team Providers Care Roof Cement And Paint Maker Helper Name Role Phone Minnie Calderon CESAR Primary Care Provider [phone] Encounter Details Date Type Department Care Team [...] Description 10/23/2024 11:30 AM EDT Office Visit [facility] MEDICINE [address] [place] [address] Minnie Calderon NP [address] [place] [address] documented as of this encounter Visit Diagnoses Not on filedocumented in this encounter Care Teams Roof Cement And Paint Maker Helper Relationship Specialty Start Date End Date Minnie Calderon NP [address] [place] [address] PCP - General Family Medicine 09/12/23 documented as of this encounter
--- OUTSIDE RECORDS SUMMARY | 2024-09-12 08:06 | XMS_ITS | Clinical Summary ---
Author Organization [employer] [facility] Address [address] [facility] [address] [place] [address] Care Team Providers Care Senior Teller Name Role Phone Minnie Calderon NP Primary Care Provider [phone] Allergies No known active allergies Medications ibuprofen [...] Description 09/11/2024 11:20 AM EST Office Visit [facility] [address] [place] [address] Pamela Baez NP Spotting in (Primary Dx) 09/11/2024 Telephone [facility] [address] [place] [address] Melly Sanches FANNY 09/10/2024 Telephone [facility] [address] [place] [address] Minnie Calderon NP Nurse Triage 09/09/2024 2:30 PM EST Office Visit [facility] [address] [place] [address] [place], Rosa M, BLENDING MACHINE FEEDER Primary hypertension (Primary Dx); Less than 8 weeks gestation of 09/09/2024 Travel 09/09/2024 Telephone [facility] [address] [place] [address] Minnie Calderon NP Nurse Triage 09/05/2024 Telephone [facility] [address] [place], [place] [phone] Minnie Calderon NP FYI from Last 3 [...] Description 10/23/2024 11:30 AM EDT Office Visit [facility] [address] [place] [address] Minnie Calderon NP [address] [place] [address] Health Maintenance Due Date Last Done Comments [...] Procedure Name Priority Date/Time Associated Diagnosis Comments HCG, TOTAL, QN Routine 09/11/2024 12:41 PM EST Spotting in HEMOGLOBIN A1C Routine 09/11/2024 12:37 PM EST Less than 8 weeks gestation of CBC WITH AUTO DIFFERENTIAL Routine 09/11/2024 12:37 PM EST Less than 8 weeks gestation of COMPREHENSIVE METABOLIC PANEL Routine 09/11/2024 12:37 PM EST Less than 8 weeks gestation of CHLAMYDIA/N. GONORRHOEAE RNA, TMA, UROGENITAL Routine 09/11/2024 12:07 PM EST Spotting in POCT , URINE Routine 09/09/2024 3:08 PM EST Less than 8 weeks gestation of PANORAMIC RADIOGRAPHIC IMAGE Routine 11/07/2023 2:00 PM EDT from Last 3 Months or Most Recently Relevant to Health Maintenance Results * hCG, Total, Quantitative (09/11/2024 12:41 PM EST) Pathologist [facility] HCG Quantitative 34,796 mIU/mL [facility] Comment:Weeks post LMP Appro ximate hCG(Last Menstrual Period) Range (mIU/ml)3 - 4 weeks 9 - 1304 - 5 weeks 75 - 2,6005 - 6 weeks 850 - 20,8006 - 7 weeks 4000 - 100,2007 - 12 weeks 11,500 - 289,26483 - 16 weeks 18,300 - 137,10609 - 29 weeks (2nd trimester) 1,400 - 53,65404 - 41 weeks (3rd trimester) 940 - 60,000The Cardoza B- hCG assay is used for the early detection ofpregnancy; it cannot be used to diagnose any conditionunrelated to . If a B-hCG level is not supportedby the clinical evidence, results should be confirmed by analternative method (qualitative urine hCG, for example). Blood Venous blood specimen / Unknown 09/11/2024 12:41 PM EST 09/11/2024 1:04 PM EST Pamela Baez NP LAB BLOOD ORDERABLES Final Resu lt [facility] [address] [place] [phone] * (ABNORMAL) CBC auto differential (09/11/2024 12:37 PM EST) Pathologist [facility] White Blood Count 11.1(H) 4.8 - 10.8 X10*3/uL [facility] Red Blood Count 4.66 4.20 - 5.50 X10*6/uL [facility] Hemoglobin 12.8 12.0 - 16.0 g/dl [facility] Hematocrit 38.5 37.0 - 47.0 % [facility] Mean Corpuscular Volume 82.6 80.0 - 98.0 fL [facility] Mean Corpuscular Hemoglobin 27.5 27.0 - 33.0 pg [facility] Mean Corpuscular HGB Conc 33.2 31.0 - 35.0 g/dl [facility] Red Cell Distribution Width 14.9 11.0 - 16.0 % [facility] Platelet Count 268 160 - 400 X10*3/uL [facility] Mean Platelet Volume 9.8 9.4 - 12.3 fL [facility] Neutrophils Percent Auto 78.5(H) 45 - 73 % [facility] Imm Gran Pct Auto 0.3 0.0 - 0.4 % [facility] Lymphocytes Percent Auto 16.8(L) 20 - 40 % [facility] Monocytes Percent Auto 4.0 2 - 11 % [facility] Eosinophils Percent Auto 0.0 0 - 4 % [facility] Basophils Percent Auto 0.4 0 - 2 % [facility] NRBC Pct Auto 0.0 0.0 - 0.2 /100WBC [facility] Neutrophils Absolute Auto 8.7(H) 2.0 - 8.3 x10*3/uL [facility] Imm Gran Abs Auto 0.03 0.00 - 0.03 X10*3/uL [facility] Lymphocytes Absolute Auto 1.9 1.2 - 4.9 X10*3/uL [facility] Monocytes Absolute Auto 0.4 0.1 - 1.2 X10*3/uL [facility] Eosinophils Absolute Auto 0.0 0.0 - 0.4 X10*3/uL [facility] Basophils Absolute Auto 0.0 0.0 - 0.2 X10*3/uL [facility] NRBC Abs Auto 0.000 0.0 - 0.012 X10*3/uL [facility] Blood Venous blood specimen / Unknown 09/11/2024 12:37 PM EST 09/11/2024 1:04 PM EST [facility] BLENDING MACHINE FEEDER LAB BLOOD ORDERABLES Final Re sult [facility] [address] [place] [phone] * Hemoglobin A1c (09/11/2024 12:37 PM EST) Hemoglobin A1c 5.2 <6.0 % [facility] Comment:Hemoglobin A1C Refer ence Range Adults: 4.8 - 6.0 % Non diabetic: < 6.0 % Goal: < 7.0 %Additional Action Suggested: > 8.0 %Note: Hemoglobin A1c results are invalid for patients with abnormal amounts of HbF. Blood transfusions may impact the HbA1c concentration in the patient sample. Estimated Average Glucose 103 mg/dL [facility] Comment:eAG = Estimated ave rage glucose which is %A1C expressed asaverage glucose, using the formula of the I3V-GesdobaGftsnzs Glucose study (ADAG), Diabetes Care, Vol.31,#8,Mar. 2007 Blood Venous blood specimen / Unknown 09/11/2024 12:37 PM EST 09/11/2024 1:04 PM EST [facility] LAB BLOOD ORDERABLES Final Re sult [facility] [address] [place] [phone] * (ABNORMAL) Comprehensive Metabolic Panel (09/11/2024 12:37 PM EST) Sodium 135 135 - 145 mmol/L [facility] Potassium 3.3 3.3 - 5.1 mmol/L [facility] Chloride 104 96 - 108 mmol/L [facility] Carbon Dioxide 24 22 - 29 mmol/L [facility] Anion Gap 10(L) 12 - 20 [facility] Urea Nitrogen (BUN) 5(L) 9 - 16 mg/dL [facility] Creatinine, Serum 0.69 0.5 - 1.4 mg/dL [facility] Estimated Glomerular Filt Rate >60 [facility] Comment:Chronic Kidney Disea se: Estimated GFR < 60 mL/min/1.39y3Hcsifk Kidney Disease: Estimated GFR < 15 mL/min/1.73m2 Glucose 88 60 - 115 mg/dL [facility] Calcium 8.4 8.4 - 10.2 mg/dL [facility] Bilirubin, Total 0.4 0.0 - 1.0 mg/dL [facility] Aspartate Amino Transferase 15 5 - 31 U/L [facility] Alanine Aminotransferase 18 0 - 31 U/L [facility] Total Protein 7.4 6.5 - 8.0 g/dL [facility] Albumin Level 3.9 3.5 - 5.0 g/dL [facility] Alkaline Phosphatase 70 39 - 117 U/L [facility] Blood Venous blood specimen / Unknown 09/11/2024 12:37 PM EST 09/11/2024 1:04 PM EST [facility] LAB BLOOD ORDERABLES Final Re sult [facility] [address] [place] [phone] * Chlamydia/N. Gonorrhoeae RNA, TMA, Vagina (09/11/2024 12:07 PM EST) CT PCR NOT DETECTED Not Detect. [facility] Comment:A not detected test result does not exclude the possibilityof infection because test results can be affected byimproper specimen collection, concurrent antibiotic therapy,or the number of organisms in the specimen which may bebelow the sensitivity of the test. As with many diagnostictests, results from the Xpert CT/NG assay should beinterpreted in conjunction with other laboratory andclinical data available to the clinician.Xpert CT/NG performance has not been evaluated in patientsless than 14 years of age. The assay should not be used forthe evaluationof suspected sexual abuse or for other medico-legalindications. Additional testing is recommended in anycircumstance when false positive or false negative resultscould lead to adverse medical, social or psychologicalconsequences. NG PCR NOT DETECTED Not Detect. [facility] Comment:A not detected test result does not exclude the possibilityof infection because test results can be affected byimproper specimen collection, concurrent antibiotic therapy,or the number of organisms in the specimen which may bebelow the sensitivity of the test. As with many diagnostictests, results from the Xpert CT/NG assay should beinterpreted in conjunction with other laboratory andclinical data available to the clinician.Xpert CT/NG performance has not been evaluated in patientsless than 14 years of age. The assay should not be used forthe evaluationof suspected sexual abuse or for other medico-legalindications. Additional testing is recommended in anycircumstance when false positive or false negative resultscould lead to adverse medical, social or psychologicalconsequences. Swab (Vaginal Swab) 09/11/2024 12:07 PM EST 09/11/2024 2:52 PM EST Narrative [facility] - 09/12/2024 4:53 AM EST Vaginal Pamela Baez DIRECTOR CASE MANAGEMENT LAB MICROBIOLOGY - [facility] Final Result Performing Organization Address City/State/[facility] Co de Phone Number [facility] [address] [place] [address] [phone] * (ABNORMAL) POCT Urine (09/09/2024 3:08 PM EST) Preg Test, Ur Positive( A) Negative, Indeterminate, None Detected, Invalid, Specimen unsatisfactory for evaluation, Weakly Positive Urine 09/09/2024 3:08 PM EST [facility] BLENDING MACHINE FEEDER POINT OF CARE TEST ENTER/EDIT ORDERABLES Final Result from Last 3 Months Insurance [facility] [place] AD[place] Care Teams Senior Teller Relationship Specialty Start Date End Date Minnie Calderon NP [address] [place] [phone] PCP - General Family Medicine 09/12/23
--- OUTSIDE RECORDS SUMMARY | 2024-09-12 08:06 | XMS_ITS | Encounter Summary ---
Author Organization [employer] Address [address] [facility] [address] [address] 7[address] [place] [address] Care Team Providers Care Contract Driver Name Role Phone Minnie Calderon NP Primary Care Provider [phone] Reason for Visit * Reason Onset Date Comments FYI 09/05/2024 Encounter Details Date Type Department Care Team ([facility] st Contact Info) Description 09/05/2024 Telephone [facility] [address] [place] [address] Minnie Calderon NP [address] [place] [address] FYI Social History Tobacco Use Types Packs/Day [...] Description 10/23/2024 11:30 AM EDT Office Visit [facility] [address] [place] [address] Minnie Calderon NP [address] [place] [address] documented as of this encounter Visit Diagnoses Not on filedocumented in this encounter Care Teams Contract Driver Relationship Specialty Start Date End Date Minnie Calderon NP [address] [place] [phone] PCP - General Family Medicine 09/12/23 documented as of this encounter
--- OUTSIDE RECORDS SUMMARY | 2024-09-12 08:06 | XMS_ITS | Encounter Summary ---
Author Organization [employer] Address [address] [place] [address] Care Team Providers Care Professor Of Pathology Name Role Phone Minnie Calderon MANAGER MSW Primary Care Provider [phone] Reason for Visit * Reason Onset Date Comments Nurse Triage 09/10/2024 Encounter Details Date Type Department Care Team ([facility] st Contact Info) Description 09/10/[address] [facility] [address] [place] [address] Minnie Calderon NP [address] [place] [address] Nurse Triage Social History Tobacco Use Types [...] hydration. Appt. Made for 1115am tomorrow at [facility] to assess and get blood work [...] 11:30 AM EDT Office Visit [facility] [address] [place] [address] Minnie Calderon NP [address] [place] [address] documented as of this encounter Visit Diagnoses Not on filedocumented in this encounter Care Teams Professor Of Pathology Relationship Specialty Start Date End Date Minnie Calderon NP [address] [place] [phone] PCP - General Family Medicine 09/12/23 documented as of this encounter
--- OUTSIDE RECORDS SUMMARY | 2024-09-12 08:06 | XMS_ITS | Encounter Summary ---
Author Organization [employer] Address [address] [facility] [address]t [place] [address] Care Team Providers Care Industrial Equipment Mechanic Name Role Phone Minnie Calderon NP Primary Care Provider [phone] Reason for Referral * Consultation (Routine) - Pending Review Specialty Diagnoses / Procedures Referred By Mainor valdez Referred To Contact Obstetrics and Gynecology Diagnoses Less than 8 weeks gestation of Rosa M Romero FNP [address] [place] [address] Phone: tel: fax: Referral ID Status Reason Start Date Expiration Date Visits Requested Visits Authorized [id number] Pending Review Specialty Services Required 09/09/2024 09/09/2025 1 1 Reason for Visit * Reason Comments Hypertension Encounter Details Date Type Department Care Team ([facility] st Contact Info) Description 09/09/2024 2:30 PM EST Office Visit [facility] [address] [place] [address] Rosa M Romero FNP [address] [place] [address] Primary hypertension (Primary Dx); Less than 8 weeks gestation of Social History Tobacco Use Types Packs/Day Years [...] 2:32 PM EST documented in this encounter Progress Notes * [facility], IRON SETTER - 09/09/2024 2:30 PM EST SUBJECTIVE: Gina Rome is a 34 y.o. year old female who presents for evaluation of elevated blood pressure and positive home test. HPI Patient reports ports took multiple positive home tests earlier today. LMP was sometime in the middle of July. She denies cramping, vaginal discharge, spotting. Plans to continue . This is patient's fifth (3 children, 1 miscarriage). Reports hx of placental infection in 2nd . Otherwise no complications She also reports elevated blood pressure. She has a history of hypertension and states that she used to be prescribed medication. She does not recall the name. Significant family history for hypertension and preeclampsia. Pt denies CP/SOB/headache/blurred vision - No TUD/ETOH/JACEY Patient Active Problem List Diagnosis Dental caries into pulp Periodontal disease Refractive amblyopia, right Review of Systems Constitutional: Negative for fatigue, fever and unexpected weight change. Eyes: Negative for visual disturbance. Respiratory: Negative for apnea, chest tightness and shortness of breath. Cardiovascular: Negative for chest pain, palpitations and leg swelling. Neurological: Negative for dizziness, light-headedness and headaches. OBJECTIVE: Vitals: 09/09/24 1432 BP: (!) 144/101 Pulse: 73 Resp: 20 Temp: 97 ??F (36.1 ??C) SpO2: 98% Physical Exam Constitutional: General: She is not in acute distress. Appearance: Normal appearance. HENT: Head: Normocephalic and atraumatic. Right Ear: External ear normal. Left Ear: External ear normal. Nose: Nose normal. Eyes: Conjunctiva/sclera: Conjunctivae normal. Cardiovascular: Rate and Rhythm: Normal rate and regular rhythm. Heart sounds: Normal heart sounds. Pulmonary: Effort: Pulmonary effort is normal. Breath sounds: Normal breath sounds. Skin: General: Skin is warm and dry. Neurological: General: No focal deficit present. Mental Status: She is alert and oriented to person, place, and time. Psychiatric: Mood and Affect: Mood normal. Behavior: Behavior normal. ASSESSMENT/PLAN 1. Primary hypertension (Primary) -Will start labetalol 100 mg twice daily. Patient has blood pressure monitor at home Record blood pressure 1-2x/day at varying times of day Contact health center if three readings are >140/90. Seek immediate medical care if reading is greater than or equal to 180/120 or if experiencing chestpain, blurred vision or severe headache Follow up with PCP 1 month Patient verbalizes understanding and agrees to plan. - labetalol (Normodyne) 100 MG tablet; Take 1 tablet (100 mg) by mouth 2 times daily. Dispense: 60 tablet; Refill: 11 2. Less than 8 weeks gestation of -Start once daily vitamin - Will obtain baseline labs - Referral to [facility] for care - ED precautions advised - POCT Urine - multivitamin () 27-0.8 MG tablet; Take 1 tablet by mouth Once per day. Dispense: 30 tablet; Refill: 0 - Referral to Obstetrics / Gynecology; Future - Comprehensive Metabolic Panel; Future - CBC auto differential; Future - Hemoglobin A1c; Future - Referral to Obstetrics / Gynecology - Comprehensive Metabolic Panel - CBC auto differential - Hemoglobin A1c Follow Up: 4 weeks with PCP Current Outpatient Medications on File Prior to Visit Medication Sig Dispense Refill acetaminophen (Tylenol) 500 MG tablet Take 1 tablet (500 mg) by mouth every 6 (six) hours if neededfor mild pain for up to 20 doses. 20 tablet 0 ibuprofen 600 MG tablet Take 1 tablet (600 mg) by mouth every 6 (six) hours if needed for mild painfor up to 20 doses. 20 tablet 0 metoprolol succinate XL (Toprol-XL) 25 MG 24 hr tablet Take 1 tablet by mouth at bed time. No current facility-administered medications on file prior to visit. documented in this encounter Plan of Treatment Upcoming Encounters Date Type Department Care Team (Late st Contact Info) Description 10/23/2024 11:30 AM EDT Office Visit [facility] [address] [place] [address] Minnie Calderon NP [address] [place] [address] Scheduled Referrals Name Type Priority Associated Diagnoses [...] PM EST) Hemoglobin A1c 5.2 <6.0 % [facility] Comment:Hemoglobin A1C Refer ence Range Adults: 4.8 - 6.0 % Non diabetic: < 6.0 % Goal: < 7.0 %Additional Action Suggested: > 8.0 %Note: Hemoglobin A1c results are invalid for patients with abnormal amounts of HbF. Blood transfusions may impact the HbA1c concentration in the patient sample. Estimated Average Glucose 103 mg/dL [facility] Comment:eAG = Estimated ave rage glucose which is %A1C expressed asaverage glucose, using the formula of the V8G-LaepndbWxsanis Glucose study (ADAG), Diabetes Care, Vol.31,#8,Aug. 2007 Blood Venous blood specimen / Unknown 09/11/2024 12:37 PM EST 09/11/2024 1:04 PM EST [facility] BLOOD ORDERABLES Final Re sult [facility] [address] [place] [phone] * (ABNORMAL) CBC auto differential (09/11/2024 12:37 PM EST) White Blood Count 11.1(H) 4.8 - 10.8 X10*3/uL [facility] Red Blood Count 4.66 4.20 - 5.50 X10*6/uL [facility] Hemoglobin 12.8 12.0 - 16.0 g/dl [facility] Hematocrit 38.5 37.0 - 47.0 % [facility] Mean Corpuscular Volume 82.6 80.0 - 98.0 fL [facility] Mean Corpuscular Hemoglobin 27.5 27.0 - 33.0 pg [facility] Mean Corpuscular HGB Conc 33.2 31.0 - 35.0 g/dl [facility] Red Cell Distribution Width 14.9 11.0 - 16.0 % [facility] Platelet Count 268 160 - 400 X10*3/uL [facility] Mean Platelet Volume 9.8 9.4 - 12.3 fL [facility] Neutrophils Percent Auto 78.5(H) 45 - 73 % [facility] Imm Gran Pct Auto 0.3 0.0 - 0.4 % [facility] Lymphocytes Percent Auto 16.8(L) 20 - 40 % [facility] Monocytes Percent Auto 4.0 2 - 11 % [facility] Eosinophils Percent Auto 0.0 0 - 4 % [facility] Basophils Percent Auto 0.4 0 - 2 % [facility] NRBC Pct Auto 0.0 0.0 - 0.2 /100WBC [facility] Neutrophils Absolute Auto 8.7(H) 2.0 - 8.3 x10*3/uL [facility] Imm Gran Abs Auto 0.03 0.00 - 0.03 X10*3/uL [facility] Lymphocytes Absolute Auto 1.9 1.2 - 4.9 X10*3/uL [facility] Monocytes Absolute Auto 0.4 0.1 - 1.2 X10*3/uL [facility] Eosinophils Absolute Auto 0.0 0.0 - 0.4 X10*3/uL [facility] Basophils Absolute Auto 0.0 0.0 - 0.2 X10*3/uL [facility] NRBC Abs Auto 0.000 0.0 - 0.012 X10*3/uL [facility] Blood Venous blood specimen / Unknown 09/11/2024 12:37 PM EST 09/11/2024 1:04 PM EST [facility] LAB BLOOD ORDERABLES Final Re sult [facility] [address] [place] [phone] * (ABNORMAL) Comprehensive Metabolic Panel (09/11/2024 12:37 PM EST) Sodium 135 135 - 145 mmol/L [facility] Potassium 3.3 3.3 - 5.1 mmol/L [facility] Chloride 104 96 - 108 mmol/L [facility] Carbon Dioxide 24 22 - 29 mmol/L [facility] Anion Gap 10(L) 12 - 20 [facility] Urea Nitrogen (BUN) 5(L) 9 - 16 mg/dL [facility] Creatinine, Serum 0.69 0.5 - 1.4 mg/dL [facility] Estimated Glomerular Filt Rate >60 [facility] Comment:Chronic Kidney Disea se: Estimated GFR < 60 mL/min/1.30g3Dkdigy Kidney Disease: Estimated GFR < 15 mL/min/1.73m2 Glucose 88 60 - 115 mg/dL [facility] Calcium 8.4 8.4 - 10.2 mg/dL [facility] Bilirubin, Total 0.4 0.0 - 1.0 mg/dL [facility] Aspartate Amino Transferase 15 5 - 31 U/L [facility] Alanine Aminotransferase 18 0 - 31 U/L [facility] Total Protein 7.4 6.5 - 8.0 g/dL [facility] Albumin Level 3.9 3.5 - 5.0 g/dL [facility] Alkaline Phosphatase 70 39 - 117 U/L [facility] Blood Venous blood specimen / Unknown 09/11/2024 12:37 PM EST 09/11/2024 1:04 PM EST [facility] BLOOD ORDERABLES Final Re sult [facility] [address] [place] [phone] * (ABNORMAL) POCT Urine (09/09/2024 3:08 PM EST) Preg Test, Ur Positive( A) Negative, Indeterminate, None Detected, Invalid, Specimen unsatisfactory for evaluation, Weakly Positive Urine 09/09/2024 3:08 PM EST [facility] [facility] POINT OF CARE TEST ENTER/EDIT ORDERABLES Final Result documented in this encounter Visit Diagnoses Diagnosis Primary hypertension- Primary Unspecified essential hypertension Less than 8 weeks gestation of documented in this encounter Care Teams Industrial Equipment Mechanic Relationship Specialty Start Date End Date Minnie Calderon NP [address] [place] [address] PCP - General Family Medicine 09/12/23 documented as of this encounter
--- OUTSIDE RECORDS SUMMARY | 2024-09-12 08:06 | XMS_ITS | Encounter Summary ---
Author Organization [employer] Address [address] [place] [address] Care Team Providers Care Programming Specialist Name Role Phone Minnie Calderon CHRONIC CARE NURSE Primary Care Provider [phone] Reason for Visit * Reason Onset Date Comments Nurse Triage 09/09/2024 Encounter Details Date Type Department Care Team ([facility] st Contact Info) Description 09/09/2024 Telephone [facility] [address] [place] [address] Minnie Calderon NP [address] [place] [address] Nurse Triage Social History Tobacco Use Types Packs/Day Years Used Date Smoking Tobacco: Never Passive Smoke Exposure: Never Smokeless Tobacco: Never Alcohol Use Standard Drinks/Week Comments Never 0 (1 standard drink = 0.6 oz pur e alcohol) Housing Stability Answer Date Recorded What is your housing situation today? I have pofririojose simpson 09/09/[address] you [...] a message. Had spoke to someone at [facility] and was told that she would be considered High Risk but is unsure of reason. Patient felt some headache and took BP was 137/99. No other reported symptoms. Has call out to Laura Farias to initiate a [employer] team. Pending return call. Disposition reviewed and patient in agreement with plan.[email or web address] CHRONIC CARE [email or web address]@ 230pm today for evaluation of BP. Not [...] caller accepted this outcome. Contact pt at [phone] documented in this encounter Plan of Treatment Upcoming Encounters Date Type Department Care Team ([facility] st Contact Info) Description 10/23/2024 11:30 AM EDT Office Visit [facility] [address] [place] [address] Minnie Calderon NP [address] [place] [address] documented as of this encounter Visit Diagnoses Not on filedocumented in this encounter Care Teams Programming Specialist Relationship Specialty Start Date End Date Minnie Calderon NP [address] [place] [address] PCP - General Family Medicine 09/12/23 documented as of this encounter
--- OUTSIDE RECORDS SUMMARY | 2024-09-12 08:06 | XMS_ITS | Encounter Summary ---
Author Organization [facility] Address [address] 7[address] [place] [address] Care Team Providers Care Conveyor Belt Operator Name Role Phone Minnie Calderon NP Primary Care Provider [phone] Reason for Referral * Imaging (STAT) - Authorized Specialty Diagnoses / Procedures Referred By Mainor valdez Referred To Contact Radiology Diagnoses Spotting in Procedures US OB Transvaginal Pamela Baez NP [address] [place] [address] Phone: tel: fax: [facility] [address] [place] [address] Phone: tel: fax: Referral ID Status Reason Start Date Expiration Date V isits Requested Visits Authorized [id number] Authorized 09/11/2024 09/11/2025 1 1 Encounter Details Date Type Department Care Team (Late st Contact Info) Description 09/11/2024 11:20 AM EST Office Visit [facility] [address] [place], [place] [phone] Pamela Baez NP [address] [place], [place] [phone] Spotting in (Primary Dx) Social History Tobacco [...] 11:22 AM EST documented in this encounter Progress Notes * Pamela Baez NP - 09/11/2024 11:20 AM EST SUBJECTIVE: Gina Abdoulaye Rome is a 34 y.o. female who presents to the Walk [facility] Center for a sick visit. Denies recent illness, injury, or hospitalization. ANKIT Fuentes reports being and noticed blood on toilet paper only both today and 1 day ago. Reports having intercourse 1 day ago before the symptom started. She denies evidence of vaginal tears/irritation, burning with urination, abdominal cramping or pelvic pain. Has history of miscarriage in the past and expresses her concern. She is waiting for a call from OB regarding an appointment. Review of Systems Constitutional: Negative. Negative for chills and fever. Respiratory: Negative for chest tightness and shortness of breath. Cardiovascular: Negative for chest pain. Gastrointestinal: Negative for abdominal pain, constipation, diarrhea and nausea. Genitourinary: Positive for vaginal bleeding. Negative for difficulty urinating, dyspareunia, dysuria, hematuria, vaginal discharge and vaginal pain. Musculoskeletal: Negative for arthralgias, back pain, myalgias and neck pain. Skin: Negative. Negative for rash and wound. Neurological: Negative for weakness, light-headedness and headaches. Psychiatric/Behavioral: Negative for behavioral problems, confusion, decreased concentration and suicidal ideas. OBJECTIVE: Visit Vitals BP 127/79 (BP Location: Left arm, Patient Position: Sitting, BP Cuff Size: Large adult) Pulse 73 Temp 97.6 ??F (36.4 ??C) (Oral) Resp 17 Ht 5' 2 (1.575 m) Wt 214 lb 6 oz (97.2 kg) LMP 07/26/2024 (Approximate) SpO2 99% BMI 39.21 kg/m?? OB Status Smoking Status Never BSA 2.06 m?? Patient Active Problem List Diagnosis Dental caries into pulp Periodontal disease Refractive amblyopia, right Physical Exam Vitals reviewed. Constitutional: General: She is not in acute distress. Appearance: Normal appearance. She is not ill-appearing. HENT: Head: Normocephalic and atraumatic. Right Ear: External ear normal. Left Ear: External ear normal. Nose: Nose normal. Eyes: General: No scleral icterus. Extraocular Movements: Extraocular movements intact. Cardiovascular: Rate and Rhythm: Normal rate and regular rhythm. Pulses: Normal pulses. Heart sounds: Normal heart sounds. Pulmonary: Effort: Pulmonary effort is normal. No respiratory distress. Breath sounds: Normal breath sounds. Musculoskeletal: General: Normal range of motion. Cervical back: Normal range of motion. Neurological: General: No focal deficit present. Mental Status: She is alert and oriented to person, place, and time. Gait: Gait normal. Psychiatric: Mood and Affect: Mood normal. Behavior: Behavior normal. Assessment/Plan Diagnoses and all orders for this visit: Spotting in Comments: -labs ordered to r/o STI infection as probable cause -unable to r/o ectopic in office; STAT US ordered -ED precautions reviewed Orders: - US OB Transvaginal; Future - Chlamydia/N. Gonorrhoeae RNA, TMA, Vagina - Bacterial Vaginosis; Future - hCG, Total, Quantitative; Future documented in this encounter Plan of Treatment Upcoming Encounters Date Type Department Care Team (Late st Contact Info) Description 10/23/2024 11:30 AM EDT Office Visit [facility] [address] [place], [place] [phone] Minnie Calderon NP [address] [place], [place] [phone] Scheduled Orders Name Type Priority Associated Diagnoses Orde r Schedule US OB Transvaginal Imaging STAT Spotting in Expected: 09/11/2024, Expires: 09/11/2025 Bacterial Vaginosis Microbiology Routine Spotting in Expected: 09/11/2024 (Approximate), Expires: 09/11/2025 documented as of this encounter Procedures Procedure Name Priority Date/Time Associated Diagnosis Comments HCG, TOTAL, QN Routine 09/11/2024 12:41 PM EST Spotting in CHLAMYDIA/N. GONORRHOEAE RNA, TMA, UROGENITAL Routine 09/11/2024 12:07 PM EST Spotting in documented in this encounter Results * hCG, Total, Quantitative (09/11/2024 12:41 PM EST) HCG Quantitative 34,796 mIU/mL [facility] Comment:Weeks post LMP Appro ximate hCG(Last Menstrual Period) Range (mIU/ml)3 - 4 weeks 9 - 1304 - 5 weeks 75 - 2,6005 - 6 weeks 850 - 20,8006 - 7 weeks 4000 - 100,2007 - 12 weeks 11,500 - 289,24202 - 16 weeks 18,300 - 137,49874 - 29 weeks (2nd trimester) 1,400 - 53,75009 - 41 weeks (3rd trimester) 940 - [...] NP LAB BLOOD ORDERABLES Final Resu lt [facility] [address] [place] [phone] * Chlamydia/N. Gonorrhoeae RNA, TMA, Vagina (09/11/2024 12:07 PM EST) CT PCR NOT DETECTED Not Detect. [facility] Comment:A not detected test result does [...] psychologicalconsequences. NG PCR NOT DETECTED Not Detect. [facility] Comment:A not detected test result does [...] PM EST 09/11/2024 2:52 PM EST Narrative [facility] - 09/12/2024 4:53 AM EST Vaginal Pamela Baez NP LAB MICROBIOLOGY - [facility] Final Result [facility] [address] [place] [phone] documented in this encounter Visit Diagnoses Diagnosis Spotting in - Primary Spotting complicating , unspecified as to episode of care or not applicable documented in this encounter Care Teams Conveyor Belt Operator Relationship Specialty Start Date End Date Minnie Calderon NP [address] [place] [phone] PCP - General Family Medicine 09/12/23 documented as of this encounter
--- OUTSIDE RECORDS SUMMARY | 2024-09-12 08:06 | XMS_ITS | Encounter Summary ---
Author Organization [employer] Address [address] [place] [address] Care Team Providers Care Gravure Press Operator Name Role Phone PhillMinnie alvarado CESAR Primary Care Provider [phone] Encounter Details Date Type Department Care Team (Late st Contact Info) Description 09/11/2024 Telephone [facility] [address] [place] [address] Melly Sanches, FANNY Social History Tobacco Use Types Packs/Day Years Used Date Smoking Tobacco: Never Passive Smoke Exposure: Never Smokeless Tobacco: Never Alcohol Use Standard Drinks/Week Comments Never 0 (1 standard drink = 0.6 oz pur e alcohol) Housing Stability Answer Date Recorded What is your housing situation today? I have porfirio calvin 09/09/[address] you li [...] Telephone Encounter - Melly Sanches RN - 09/11/2024 4:29 PM EST TC placed to pt per provider message, Please call and inform patient of lab results. Serum HCG reflects approx 12-16 weeks gestation, but as discussed during her visit, US is necessary for definitive confirmation of . Please provide her the number to call for stat US that was ordered to advise she go to the ED for imaging. BUN is slightly decreased, advise she increase protein intake. Thank you . Pt booked for US tomorrow 09/12/24 at 8:30 AM. Advised to eat protein such as chicken, tofu, nuts, legumes. Pt verbalized understanding and denies questions or concerns at this time. documented in this encounter Plan of Treatment Upcoming Encounters Date Type Department Care Team (Late st Contact Info) Description 10/23/2024 11:30 AM EDT Office Visit [facility] [address] [place] [address] Minnie Calderon NP [address] [place] [phone] documented as of this encounter Visit Diagnoses Not on filedocumented in this encounter Care Teams Gravure Press Operator Relationship Specialty Start Date End Date Minnie Calderon NP [address] [place] [address] PCP - General Family Medicine 09/12/23 documented as of this encounter
== END 2024-09-12 08:04 | disposition home or self-care (01) ==
LOC: HO.US 08:03
PROVIDERS: PCP Nurse Practitioner; Visit Provider Nurse Practitioner
DX: O26.851 Spotting complicating pregnancy, first trimester (principal)
CPT/HCPCS: 76801

== ENCOUNTER 2025-03-19 11:44 | Emergency (ER) | payer MEDICAID, SELFPAY ==
--- NOTE | 2025-03-19 11:47 | ED_ITS ---
HPI - General Adult General Chief complaint: Abdominal Pain Stated complaint: 8mo preg, back pain, chills, contractions Time Seen by Provider: 03/19/25 12:10 Source: patient and RN notes reviewed Mode of arrival: ambulatory Limitations: no limitations History of Present Illness ED Provider: Jaky Stone PA-C HPI narrative: This is a 34-year-old female, (1 miscarriage), 33 week (34 weeks tomorrow) , who presents emergency department with concerns of right-sided back pain, urinary frequency, urgency, and dysuria which started yesterday. Patient states that she had a urinary tract infection 2-3 weeks ago, finish the entire course of antibiotics. Patient also reports that she was having ?[place] contractions? all day yesterday, states that she did have a contraction at 7:00AM this morning which lasted until 7:04AM. She denies any fevers, she does endorse chills. No chest pain or shortness of breath. No nausea, vomiting, diarrhea or constipation. She has been monitored for hypertension in her , she is currently on baby aspirin. She has been taking Tylenol for her symptoms, took 2 doses this morning. No other complaints or concerns at this time. MD complaint: Right flank pain, urinary symptoms Onset (ago): day(s) Relieving factors: none Exacerbating factors: none Associated symptoms: denies other symptoms Treatments prior to arrival: none Related Data Previous Rx's ?Medication ?Instructions ?Recorded ibuprofen 400 mg tablet 400 mg PO Q6H PRN pain #20 t abs 02/26/21 ondansetron 4 mg disintegrating 4 mg PO TID PRN nausea and 02/26/21 tablet vomiting 5 days #10 tabs oxycodone 5 mg tablet 5 mg PO Q8H PRN pain #7 tabs 02/26/21 tamsulosin 0.4 mg capsule (Flomax) 0.4 mg PO DAILY #7 caps 02/26/21 prednisone 20 mg tablet 20 mg PO DAILY 5 days #5 tab s 03/04/21 tamsulosin 0.4 mg capsule 0.4 mg PO DAILY 14 days #14 caps 03/04/21 Allergies Allergy/AdvReac Type Severity Reaction Status Date / Time No Known Allergies (No Known Allergy Verified 03/19/25 11:51 Allergies*) Review of Systems 2 Review of Systems: Yes all other systems are reviewed and are negative Constitutional: Constitutional: Reports as per [facility] Past Medical History Medical History (Updated 03/19/25 @ 12:34 by TERRY Fernandez) Kidney stones Social History Social History Alcohol intake: never Patient Tobacco Use Status: Never used Tobacco Advance Directives: No Advance Directives Information Provided: Yes Do you have a plan to hurt others: No Plan Patient : Yes Physical Exam ED Vital Signs: Vital Signs - 24 hr 03/19/25 11:49 03/19/25 13:32 03/19/25 14:15 Temperature 97.0 F 97.5 F 97.5 F Pulse Rate 110 H 105 H 105 H Respiratory Rate 16 18 18 Blood Pressure 129/58 L 103/61 103/61 Pulse Oximetry 95 97 97 Oxygen Delivery Method Room Air Room Air Room Air BMI result Body Mass Index 36.4 Const General: cooperative, comfortable and no acute distress Orientation/consciousness: patient oriented x3 Limitations: no limitations HENMT Head: Yes normal to inspection, Yes normocephalic and Yes atraumatic Ears: hearing grossly normal bilaterally General nose exam: Normal external nose present Face and sinus: Yes normal facial exam Mouth: Normal oral and palatal mucosa present, oropharynx normal and moist mucous membranes Throat: Yes posterior oropharynx normal Eyes General: appearance normal, both eyes and all related structures Eyelids: Yes eyelids normal Conjunctivae: conjunctivae normal Sclerae: sclerae normal Pupils: Equal, round and reactive pupils present EOM: EOMs intact bilaterally Neck Neck: Yes normal visual inspection, Yes full ROM and Yes no lymphadenopathy Lymphatic: no lymphadenopathy noted Chest Chest palpation & inspection: normal inspection of the chest Resp Effort & Inspection: normal respiratory effort and able to speak in complete sentences Auscultation: clear to auscultation bilaterally, no crackles, no rales, no rhonchi and no wheezes Cardio Rate: regular rate Rhythm: regular rhythm Heart sounds: S1 normal heart sound present and S2 normal heart sound present GI Other: Gravid abdomen with positive movement. Abdomen is nontender Inspection: Yes normal to inspection Back/Spine/Pelvis Other: Right-sided CVA tenderness. Skin General skin exam: no rashes or lesions noted Trauma: no lacerations or abrasions Wounds: no wounds Neuro General: patient oriented x3 and moves all extremities Cranial nerves: Yes Equal, round and reactive pupils present Extrem General: Yes normal to inspection Right upper extremity: normal to inspection Left upper extremity: normal to inspection Right lower extremity: normal to inspection Left lower extremity: normal to inspection Course Course Course Narrative: This is a rapid medical exam performed by Shade Merrill COMMUNICATIONS OFFICER: Additional HPI, ROS, PE not included below will be deferred to primary provider. Patient is a 34-year-old female 8 mos gestation LELO 05/01 with history of HTN, considered a high risk , kidney stones complaining of right flank pain, dysuria. Improves with Tylenol. Has had multiple UTIs during this . Called OB today, have not called her back. Denies any vaginal bleeding. Plan: charge entry clerk notified, labs, UA Medical Decision Making Medical Decision Making [facility] Narrative: This is a 34-year-old female, , 33 week , who presents emergency department with concerns of right-sided flank pain, back pain, and urinary symptoms which started yesterday. On arrival, patient tachycardic at 110, she is afebrile, blood pressure 129/58. Patient did take Tylenol this morning. Abdomen is soft, nontender. She does have right-sided CVA tenderness. Urine was collected prior to my evaluation, she has proteinuria, glucosuria, positive nitrites, moderate leuk esterases, greater than 50 wbc's. Given that patient is 33 weeks , having right-sided CVA tenderness with urinary symptoms and contractions, we are unable to perform any monitoring here in this facility therefore patient needs to be at a different facility for further management. She sees [facility]. Discussed case with my attending physician, Dr. David, we will discussed patient with [facility], as she will likely need to be transferred. [phone] - Spoke to Dr. Kimberly Lang, recommending for patient to present to [facility]. Pt presented to our ED via uber, will set up transfer for patient. Transfer of care initiated. Differential Diagnosis Differential Diagnoses: The differential diagnosis associated with the presentation includes Urinary tract infection, pyelonephritis, renal colic, threatened miscarriage Lab Data MDM Lab Attestation statement: I reviewed the patient's lab results. No leukocytosis, normocytic anemia with an H&H of 10.9/32, chemistry revealing slight hypokalemic at 3.2, chloride while 9, carbon dioxide 19, anion gap 11, BUN 5. No evidence of OVI. Phos slightly elevated 131, liver transaminases within normal limits. Urine with proteinuria, glucosuria, nitrites, moderate leuk esterases, greater than 50 wbc's > consistent with a urinary tract infection. 03/19/25 12:11 03/19/25 12:11 Labs: Lab Results 03/19/25 03/19/25 Range/Units 11:59 12:11 WBC 9.6 (4.8-10.8) X10*3/uL RBC 3.87 L (4.20-5.50) X10*6/uL Hgb 10.9 L (12.0-16.0) g/dl Hct 32.0 L (37.0-47.0) % MCV 82.7 (80.0-98.0) fL MCH 28.2 (27.0-33.0) pg MCHC 34.1 (31.0-35.0) g/dl RDW 15.5 (11.0-16.0) % Plt Count 169 D (160-400) X10*3/uL MPV 9.4 (9.4-12.3) fL Immature Gran % (Auto) 0.5 H (0.0-0.4) % Neut % (Auto) 81.8 H (45-73) % Lymph % (Auto) 9.1 L (20-40) % [place] % (Auto) 8.3 (2-11) % Eos % (Auto) 0.0 (0-4) % Baso % (Auto) 0.3 (0-2) % Lymph # (Auto) 0.9 L (1.2-4.9) X10*3/uL [place] # (Auto) 0.8 (0.1-1.2) X10*3/uL Eos # (Auto) 0.0 (0.0-0.4) X10*3/uL Baso # (Auto) 0.0 (0.0-0.2) X10*3/uL Abs Immat Gran (auto) 0.05 H (0.00-0.03) X10*3/uL Absolute Neuts (auto) 7.8 (2.0-8.3) x10*3/uL Absolute Nucleated RBC 0.000 (0.0-0.012) X10*3/uL Nucleated RBC % (auto) 0.0 (0.0-0.2) /100WBC Sodium 136 (135-145) mmol/L Potassium 3.2 L (3.3-5.1) mmol/L Chloride 109 H (96-108) mmol/L Carbon Dioxide 19 L (22-29) mmol/L Anion Gap 11 L (12-20) BUN 5 L (9-16) mg/dL Creatinine 0.58 (0.5-1.4) mg/dL Estim Creat Clear Calc 139.8 Estimated GFR > 60 Random Glucose 89 (60-115) mg/dL Calcium 8.3 L (8.4-10.2) mg/dL Total Bilirubin 0.6 (0.0-1.0) mg/dL AST 14 (5-31) U/L ALT 6 (0-31) U/L Alkaline Phosphatase 131 H (39-117) U/L Total Protein 6.0 L (6.5-8.0) g/dL Albumin 3.0 L (3.5-5.0) g/dL Urine Color Dark Yellow Urine Appearance Clear Urine pH 6.5 (5.0-9.0) Ur Specific [place] 1.020 (1.005-1.025) Urine Protein 30 (1+) H (Neg-Trace) mg/dL Urine Glucose (UA) 100 H (Negative) mg/dL Urine Ketones 80 (Negative) mg/dL Urine Blood Negative (Negative) Urine Nitrite Positive H (Negative) Ur Leukocyte Esterase Moderate (2+) H (Negative) Urine RBC 0-2 (0-2) /HPF Urine WBC >50 H (0-5) /HPF Ur Squamous Epith Cells 3-5 (0-2) /HPF Urine Bacteria 4+ (None Seen) Hyaline Casts 0-2 (0-2) /LPF Chronic Conditions Patient?s care impacted by: Other () Critical Care Time Critical Care Time Critical Care Time: Yes Total Critical Care Time: 43 Attestation: I have personally provided critical care time exclusive of time spent on separately billable procedures. Time includes review of lab data, radiology results, discussion with consultants, and monitoring for potential decompensation. Intervention performed as documented. Discharge Plan Discharge Clinical Impression: Dysuria during in third trimester Patient Disposition: [facility] Acute Care Hospital Transfer Details: TO [facility] Prescriptions: No Action tamsulosin 0.4 mg capsule 0.4 mg PO DAILY 14 Days Qty: 14 0RF prednisone 20 mg tablet 20 mg PO DAILY 5 Days Qty: 5 0RF tamsulosin [Flomax] 0.4 mg capsule 0.4 mg PO DAILY Qty: 7 0RF ibuprofen 400 mg tablet 400 mg PO Q6H PRN (Reason: pain) Qty: 20 0RF ondansetron 4 mg tablet,disintegrating 4 mg PO TID PRN (Reason: nausea and vomiting) 5 Days Qty: 10 0RF oxycodone 5 mg tablet 5 mg PO Q8H PRN (Reason: pain) Qty: 7 0RF Interventions: Acute Care Transfer Worksheet (ED) Last Done: 03/19/25 14:15 Discharge Date/Time: 03/19/25 14:15 Print Language: British
[2025-03-19 11:49] VITALS: BP 129/58; PULSE 110; RESP 16; TEMP 36.1; O2SAT 95; BMI 36.4
[2025-03-19 12:09] LABS: Appearance Urine Clear; Glucose Urine UA 100 mg/dL (Negative); PH 6.5 (5.0-9.0); Specific Gravity - Urine 1.020 (1.005-1.025); UMIC TRIGGER UACC YES
[2025-03-19 12:16] LABS: MANUAL DIFF FLAG NO
[2025-03-19 12:18] LABS: Hematocrit 32.0 % (37.0-47.0); Hemoglobin 10.9 g/dl (12.0-16.0); Imm Gran Abs Auto 0.05 X10*3/uL (0.00-0.03); Imm Gran Pct Auto 0.5 % (0.0-0.4); Lymphocytes Absolute Auto 0.9 X10*3/uL (1.2-4.9); Mean Corpuscular HGB Conc 34.1 g/dl (31.0-35.0); Mean Corpuscular Hemoglobin 28.2 pg (27.0-33.0); Mean Corpuscular Volume 82.7 fL (80.0-98.0); NRBC Abs Auto 0.000 X10*3/uL (0.0-0.012); NRBC Pct Auto 0.0 /100WBC (0.0-0.2); Platelet Count 169 X10*3/uL (160-400); Red Blood Count 3.87 X10*6/uL (4.20-5.50); White Blood Count 9.6 X10*3/uL (4.8-10.8)
[2025-03-19 12:22] LABS: UACC Culture Trigger YES
[2025-03-19 12:37] LABS: Alanine Aminotransferase 6 U/L (0-31); Albumin Level 3.0 g/dL (3.5-5.0); Alkaline Phosphatase 131 U/L (39-117); Anion Gap 11 (12-20); Aspartate Amino Transferase 14 U/L (5-31); Blood Urea Nitrogen 5 mg/dL (9-16); Calcium 8.3 mg/dL (8.4-10.2); Carbon Dioxide 19 mmol/L (22-29); Chloride 109 mmol/L (96-108); Creatinine Clr Calc Pharmacy 139.8; Estimated Glomerular Filt Rate > 60; Potassium 3.2 mmol/L (3.3-5.1); Sodium 136 mmol/L (135-145); Total Protein 6.0 g/dL (6.5-8.0)
--- OUTSIDE RECORDS SUMMARY | 2025-03-19 13:00 | XMS_ITS | Clinical Summary ---
Author Organization [employer] Address [address] [facility] [address] [place] [address] Care Team Providers Care Park Superintendent Name Role Phone PhillMinnie alvarado CESAR Primary Care Provider [phone] Allergies No known active allergies Medications ibuprofen [...] tablet 4 Active labetalol (Normodyne) 100 MG tabletIndications: Primary hypertension Take 1 tablet (100 mg) by mouth 2 times daily. 60 tablet 11 5 026 Active multivitamin () 27-0.8 MG tabletIndications: Less than 8 weeks gestation of Take 1 tablet by mouth Once per day. 30 tablet 5 Active fluticasone (Flonase) 50 MCG/ACT nasal sprayIndications:N ose irritation Administer 2 sprays into each nostril 2 times daily. Shake gently. Before first use, prime pump. After use, clean tip and replace cap. 16 g 2 5 026 Active Aspirin Low Dose 81 MG EC tablet Take 2 tablets by mouth Once per day. 5 Active cefpodoxime (Vantin) 100 MG tablet Take 1 tablet by mouth 2 times daily. 5 Active cephalexin (Keftab) 500 MG tablet Take 1 tablet by mouth 2 times daily. 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 [address] [place] [address] Abdoul Aragon MA CHARTPREP 02/27/[address] [facility] [address] [place] [address] Minnie Calderon NP Nurse Triage from Last 3 Months Immunizations Immunization Administration Dates Next Due Influenza injectable quadriv alent IIV4 with preservative 05/25/2018,05/09/2017 Influenza injectable quadrivalent preservative f ree 08/31/2020 Tdap 02/15/2018 Social History Tobacco Use Types Packs/Day Years Used Date Smoking Tobacco: Never Passive Smoke Exposure: Never Smokeless Tobacco: Never Tobacco Cessation:Counseling Given: Not Answered Alcohol Use Standard Drinks/Week Comments Never 0 (1 standard drink = 0.6 oz pur e alcohol) Depression Answer Date Recorded Patient Health Questionnaire-9 Score 2 02/28/2025 Patient Health Questionnaire-9 Score 2 02/28/2025 Last PHQ-9: Questionnaire Data Not on file 0 02/28/2025 Housing Stability Answer Date Recorded What is [...] from getting things needed for daily living? Yes, it has kept me from medical appointments or getting medications. 02/28/2025 Utilities Answer Date Recorded In the past 12 months, has t he [employer], gas, oil or water company threatened to shut off services in your home? No 09/09/2024 Depression Answer Date Recorded Patient Health Questionnaire-2 Score 0 02/28/2025 Internet Access Answer Date Recorded Internet Access [...] Sign Reading Time Taken Comments Blood Pressure 126/72 02/28/2025 10:56 AM EDT Pulse 87 02/28/2025 10:56 AM EDT Temperature 36 C (96.8 F) 02/28/2025 10:56 AM EDT Respiratory Rate 18 02/28/2025 10:5 6 AM EDT Oxygen Saturation 98% 02/28/2025 10: 56 AM EDT Inhaled Oxygen Concentration - - Weight 90.6 kg (199 lb 12.8 oz) 025 10:56 AM EDT Height 157.5 cm (5' 2 ) 02/28/2025 10:5 6 AM EDT Body Mass Index 36.54 02/28/2025 10:56 AM EDT Plan of Treatment Health Maintenance Due Date Last Done Comments Dental Oral Exam 1992 Dental Prophylaxis 1992 Dental X-Ray: Bitewings 1992 HIV Screening 1992 Lipid Panel 1992 Family Planning (PISQ) 2007 HPV Vaccines (1 - 3-dose series) 2007 Hepatitis C Screening 2010 Hepatitis B Vaccines (1 of 3 - 19+ 3-dose series) 2011 Pap Smear 2013 Cervical Cancer Screening 2022 HPV/Cotest 2022 COVID-19 Vaccine (2 - 2023-2 5 season) 2024 11/14/2020 Influenza Vaccine (#1) 2025 , 05/25/2018, 05/09/2017 Alcohol/Substance Use Screening 02/28/2026 02/28/2025 Depression Screening 02/28/2026 02/28/2025, 02/28/2025 Disability Screening 02/28/2026 02/28/2025 SDOH Screening 02/28/2026 02/28/2025 Tobacco Screening 02/28/2026 02/28/2025 Dental X-Ray: Full Mouth 11/07/2026 11/07/2023 DTaP/Tdap/Td Vaccines (3 - T d or Tdap) 02/13/2035 02/13/2025, 02/15/2018 Zoster Vaccines (1 of 2) 2042 [...] patient's age to complete this topic Meningococcal B Vaccine Aged Out No l onger eligible based on patient's age to complete this topic Meningococcal Vaccine Aged Out No darwin mery eligible based on patient's age to complete this topic Pneumococcal Vaccine: Pediatrics (0 to 5 Years) and At-Risk Patients (6 to 49) Years Aged Out No longer eligible b ased on patient's age to complete this topic RSV under 20 months Aged Out No longe r eligible based on patient's age to complete this topic Rotavirus Vaccines Aged Out No longer eligible based on patient's age to complete this topic Procedures Procedure Name Priority Date/Time Associated Diagnosis Comments COMPREHENSIVE METABOLIC PANEL Routine 03/19/2025 12:11 PM EDT CBC WITH AUTO DIFFERENTIAL Routine 03/19/2025 12:11 PM EDT URINALYSIS, COMPLETE, WITH REFLEX TO CULTURE Routine 03/19/2025 11:59 AM EDT PANORAMIC RADIOGRAPHIC IMAGE Routine 11/07/2023 2:00 PM EDT from Last 3 Months or Most Recently Relevant to Health Maintenance Results * (ABNORMAL) CBC auto differential (03/19/2025 12:11 PM EDT) White Blood Count 9.6 4.8 - 10.8 X10*3/uL [facility] Red Blood Count 3.87(L) 4.20 - 5.50 X10*6/uL [facility] Hemoglobin 10.9(L) 12.0 - 16.0 g/dl [facility] Hematocrit 32.0(L) 37.0 - 47.0 % [facility] Mean Corpuscular Volume 82.7 80.0 - 98.0 fL [facility] Mean Corpuscular Hemoglobin 28.2 27.0 - 33.0 pg [facility] Mean Corpuscular HGB Conc 34.1 31.0 - 35.0 g/dl [facility] Red Cell Distribution Width 15.5 11.0 - 16.0 % [facility] Platelet Count 169 160 - 400 X10*3/uL [facility] Mean Platelet Volume 9.4 9.4 - 12.3 fL [facility] Neutrophils Percent Auto 81.8(H) 45 - 73 % [facility] Imm Gran Pct Auto 0.5(H) 0.0 - 0.4 % [facility] Lymphocytes Percent Auto 9.1(L) 20 - 40 % [facility] Monocytes Percent Auto 8.3 2 - 11 % [facility] Eosinophils Percent Auto 0.0 0 - 4 % [facility] Basophils Percent Auto 0.3 0 - 2 % [facility] NRBC Pct Auto 0.0 0.0 - 0.2 /100WBC [facility] Neutrophils Absolute Auto 7.8 2.0 - 8.3 x10*3/uL [facility] Imm Gran Abs Auto 0.05(H) 0.00 - 0.03 X10*3/uL [facility] Lymphocytes Absolute Auto 0.9(L) 1.2 - 4.9 X10*3/uL [facility] Monocytes Absolute Auto 0.8 0.1 - 1.2 X10*3/uL [facility] Eosinophils Absolute Auto 0.0 0.0 - 0.4 X10*3/uL [facility] Basophils Absolute Auto 0.0 0.0 - 0.2 X10*3/uL [facility] NRBC Abs Auto 0.000 0.0 - 0.012 X10*3/uL [facility] 03/19/2025 12:1 1 PM EDT 03/19/2025 12:15 PM EDT us Generic External Data Provider LAB BLOOD ORDERAB LES Final Result [facility] [address] [place] [address] [phone] * (ABNORMAL) Comprehensive Metabolic Panel (03/19/2025 12:11 PM EDT) Sodium 136 135 - 145 mmol/L [facility] Potassium 3.2(L) 3.3 - 5.1 mmol/L [facility] Chloride 109(H) 96 - 108 mmol/L [facility] Carbon Dioxide 19(L) 22 - 29 mmol/L [facility] Anion Gap 11(L) 12 - 20 [facility] Urea Nitrogen (BUN) 5(L) 9 - 16 mg/dL [facility] Creatinine, Serum 0.58 0.5 - 1.4 mg/dL [facility] Creatinine Clr Calc Pharmacy 139.8 [facility] Comment:Provided height and weight: 154.94 cm,87.4 kg.eGFR (calculated from the MDRD study equation) and eCrCl(calculated from the Cockcroft-Gault equation) are based ondifferent parameters and may not yield comparable results.If eCrCl result is absurd, please check patient'sheight/weight. Estimated Glomerular Filt Rate >60 [facility] Comment:Chronic Kidney Disea se: Estimated GFR < 60 mL/min/1.46m9Khuzpn Kidney Disease: Estimated GFR < 15 mL/min/1.73m2 Glucose 89 60 - 115 mg/dL [facility] Calcium 8.3(L) 8.4 - 10.2 mg/dL [facility] Bilirubin, Total 0.6 0.0 - 1.0 mg/dL [facility] Aspartate Amino Transferase 14 5 - 31 U/L [facility] Alanine Aminotransferase 6 0 - 31 U/L [facility] Total Protein 6.0(L) 6.5 - 8.0 g/dL [facility] Albumin Level 3.0(L) 3.5 - 5.0 g/dL [facility] Alkaline Phosphatase 131(H) 39 - 117 U/L [facility] 03/19/2025 12:1 1 PM EDT 03/19/2025 12:15 PM EDT us Generic External Data Provider LAB BLOOD ORDERAB LES Final Result [facility] [address] [place] [phone] * (ABNORMAL) Urinalysis, Complete, with Reflex to Culture (03/19/2025 11:59 AM EDT) Color Urine Dark Yellow [facility] Appearance Urine Clear [facility] PH 6.5 5.0 - 9.0 [facility] Glucose Urine UA 100(A) Negative mg/dL [facility] Urine Blood Negative Negative [facility] Specific [place] - Urine 1.020 1.005 - 1.025 [facility] Urine Protein 30 (1+)(A) Neg-Trace mg/dL [facility] Urine Ketones 80 Negative mg/dL [facility] Nitrite Urine Positive(A) Negative [facility] Leukocyte Esterase Urine Moderate (2+)(A) Negative [facility] RBC Urine 0-2 0 - 2 /HPF [facility] Urine WBC >50(A) 0 - 5 /HPF [facility] Urine Squamous Epithelial Cell 3-5 0 - 2 /HPF [facility] Urine Bacteria 4+ None Seen [facility] Hyaline Casts, Urine 0-2 0 - 2 /LPF [facility] 03/19/2025 11:5 9 AM EDT 03/19/2025 12:05 PM EDT Narrative [facility] - 03/19/2025 12:22 PM EDT Urine, Clean Catch us Generic External Data Provider LAB URINE ORDERAB LES Final Result Performing Organization Address City/State/[facility] Co de Phone Number [facility] [address] [place] [address] [phone] from Last 3 Months Insurance [facility] STANDARD [facility] C3 DENTAL-[facility] MEDICAID STAND ADULT Care Teams Park Superintendent Relationship Specialty Start Date End Date Minnie Calderon NP [address] [place] [phone] PCP - General Family Medicine 09/12/23
--- NOTE | 2025-03-19 13:07 | PC.NURSE ---
Addendum entered by Carlie Sutton RN 03/19/25 13:27: 1327: Call back received from [facility] Spoke with FANNY Chavez. RN to RN report completed. Kathy given opportunity for questions and all questions answered to satisfaction. Kathy aware Pt is without IV access and reports Pt is not in need of one. This RN inquires if Pt needs anything completed by this RN prior to her arrival to which Kathy replies no. Kathy advised Pt scheduled for EMS pickup within the next 30 minutes. Original Note: 1256: Call placed to [facility] @ [phone] in an attempt to complete an RN to RN report for Pts transfer to the [facility]. Spoke with Russell (? purification operator) who attempted to transfer this RN to [facility]. Russell reports after speaking with staff there that transfer information needs to come from ED provider. Russell advised that [facility] provider has already spoke with [facility] Dr. Tiff Lang re: Pts transfer. Russell reports she will sent a message to the staffing executive with this RNs call back number for report. Call back number provided and Russell read back for confirmation. Pt scheduled for 1400 transfer.
[2025-03-19 13:32] VITALS: BP 103/61; PULSE 105; RESP 18; TEMP 36.4; O2SAT 97
[2025-03-19 14:15] VITALS: BP 103/61; PULSE 105; RESP 18; TEMP 36.4; O2SAT 97
== END 2025-03-19 14:15 | disposition short-term general hospital (02) ==
PROVIDERS: Registered Nurse Emergency; Emergency Provider Emergency Medicine; PCP Nurse Practitioner
DX: O26.893 Other specified pregnancy related conditions, third trimester (principal); O26.93 Pregnancy related conditions, unspecified, third trimester; Z3A.33 33 weeks gestation of pregnancy; R30.0 Dysuria; M54.50 Low back pain, unspecified; R35.0 Frequency of micturition; Z79.899 Other long term (current) drug therapy
CPT/HCPCS: 36415; 80053; 81001; 85025; 87086; 99285; 99291